=== PATIENT | male | born 1945 | race Caucasian/White ===

== ENCOUNTER → 2024-01-05 10:14 | Outpatient (REF) | payer BC, SELFPAY | LOC: DHCBS MAIN 10:14 | PROVIDERS: ATTENDING PHYSICIAN Internal Medicine Cardiovascular Disease; FAMILY PHYSICIAN Family Medicine | DX: I25.10 Atherosclerotic heart disease of native coronary artery without angina pectoris (principal); R06.02 Shortness of breath | CPT/HCPCS: 93306 ==

== ENCOUNTER → 2024-01-09 07:28 | Outpatient (REF) | payer BC, SELFPAY ==
[2024-01-09] MEDS: LEXISCAN 0.400000000000000022 MG IV (09:38)
[2024-01-09] MEDS: AMINOPHYLLINE 75 MG IV (09:44)
== END ==
LOC: RCS 07:28
PROVIDERS: ATTENDING PHYSICIAN Internal Medicine Cardiovascular Disease; FAMILY PHYSICIAN Family Medicine
DX: I25.10 Atherosclerotic heart disease of native coronary artery without angina pectoris (principal); R06.02 Shortness of breath
CPT/HCPCS: 78452; 93017; A9500; J2785

== ENCOUNTER → 2024-03-11 07:26 | Outpatient (REF) | payer BC, SELFPAY | LOC: RAD 07:26 | PROVIDERS: ATTENDING PHYSICIAN Internal Medicine Cardiovascular Disease; FAMILY PHYSICIAN Family Medicine | DX: I73.9 Peripheral vascular disease, unspecified (principal); I71.43 Infrarenal abdominal aortic aneurysm, without rupture | CPT/HCPCS: 76770; 93922; 93925 ==

== ENCOUNTER → 2024-03-12 09:43 | Outpatient (REF) | payer BC, SELFPAY ==
[2024-03-12 12:12] LABS: ALT (SGPT) 31 U/L (0-50); AST (SGOT) 39 U/L (17-59); Alkaline Phosphatase 97 U/L (38-126); Blood Urea Nitrogen 24 mg/dl (9-20); Calcium 9.1 mg/dl (8.4-10.2); Carbon Dioxide 28 mmol/L (22-30); Chloride 104 mmol/L (98-107); Glucose 106 mg/dl (70-99); Potassium 4.3 mmol/L (3.5-5.1); Sodium 138 mmol/L (135-145); Total Protein 6.4 g/dl (6.3-8.2); eGFR > 60.00
== END ==
LOC: HWLAB 09:43
PROVIDERS: ATTENDING PHYSICIAN Family Medicine
DX: I10 Essential (primary) hypertension (principal)
CPT/HCPCS: 36415; 80053

== ENCOUNTER → 2024-03-26 09:55 | Outpatient (REF) | payer BC, SELFPAY ==
[2024-03-26 12:15] LABS: ALT (SGPT) 26 U/L (0-50); AST (SGOT) 32 U/L (17-59); Albumin 4.2 g/dl (3.5-5.0); Alkaline Phosphatase 88 U/L (38-126); Blood Urea Nitrogen 31 mg/dl (9-20); Calcium 9.6 mg/dl (8.4-10.2); Carbon Dioxide 33 mmol/L (22-30); Chloride 104 mmol/L (98-107); Glucose 105 mg/dl (70-99); HDL Cholesterol 59 mg/dl; LDL Cholesterol, Calculated 51 mg/dl; Potassium 4.5 mmol/L (3.5-5.1); Sodium 139 mmol/L (135-145); Total Bilirubin 1.1 mg/dl (0.2-1.3); Total Cholesterol 129 mg/dl (50-199); Total Protein 6.6 g/dl (6.3-8.2); Triglyceride 99 mg/dl (10-149); Very Low Density Lipoprotein 19 mg/dl (0-30); eGFR > 60.00
[2024-03-27 18:02] LABS: PSA, Ultrasensitive 3.52 ng/mL (0.00-4.00)
== END ==
LOC: HWLAB 09:55
PROVIDERS: ATTENDING PHYSICIAN Urology; FAMILY PHYSICIAN Family Medicine; REFERRING PHYSICIAN Internal Medicine Cardiovascular Disease
DX: C61 Malignant neoplasm of prostate (principal); E78.5 Hyperlipidemia, unspecified; R91.1 Solitary pulmonary nodule
CPT/HCPCS: 36415; 71250; 80053; 80061; 84153

== ENCOUNTER → 2024-06-25 09:56 | Outpatient (REF) | payer BC, SELFPAY ==
[2024-06-25 13:05] LABS: PSA, Total - Diagnostic < 0.06 ng/ml (0.0-4.0)
[2024-06-25 13:08] LABS: Testosterone, Total 17.9 ng/dl (72-623)
== END ==
LOC: HWLAB 09:56
PROVIDERS: ATTENDING PHYSICIAN Urology; FAMILY PHYSICIAN Family Medicine
DX: C61 Malignant neoplasm of prostate (principal)
CPT/HCPCS: 36415; 84153; 84403

== ENCOUNTER → 2024-10-27 09:16 | Outpatient (REF) | payer BC, SELFPAY ==
[2024-10-27 12:00] LABS: ALT (SGPT) 26 U/L (0-50); AST (SGOT) 37 U/L (17-59); Albumin 3.8 g/dl (3.5-5.0); Alkaline Phosphatase 79 U/L (38-126); Blood Urea Nitrogen 22 mg/dl (9-20); Calcium 9.1 mg/dl (8.4-10.2); Carbon Dioxide 31 mmol/L (22-30); Chloride 105 mmol/L (98-107); Glucose 103 mg/dl (70-99); HDL Cholesterol 62 mg/dl; LDL Cholesterol, Calculated 57 mg/dl; Potassium 4.4 mmol/L (3.5-5.1); Sodium 143 mmol/L (135-145); Total Bilirubin 0.5 mg/dl (0.2-1.3); Total Cholesterol 130 mg/dl (50-199); Total Protein 6.1 g/dl (6.3-8.2); Triglyceride 57 mg/dl (10-149); Very Low Density Lipoprotein 11 mg/dl (0-30); eGFR > 60.00
[2024-10-27 12:26] LABS: Testosterone, Total 7.8 ng/dl (72-623)
[2024-10-29 11:52] LABS: PSA, Ultrasensitive <0.01 ng/mL (0.00-4.00)
== END ==
LOC: HWLAB 09:16
PROVIDERS: ATTENDING PHYSICIAN Urology; FAMILY PHYSICIAN Family Medicine; REFERRING PHYSICIAN Internal Medicine Cardiovascular Disease
DX: C61 Malignant neoplasm of prostate (principal); I25.10 Atherosclerotic heart disease of native coronary artery without angina pectoris; E78.5 Hyperlipidemia, unspecified
CPT/HCPCS: 36415; 80053; 80061; 84153; 84403

== ENCOUNTER → 2025-05-02 15:07 | Outpatient (REF) | payer BC, SELFPAY | LOC: RAD 15:07 | PROVIDERS: ATTENDING PHYSICIAN Internal Medicine Cardiovascular Disease; FAMILY PHYSICIAN Family Medicine; REFERRING PHYSICIAN Urology | DX: I35.0 Nonrheumatic aortic (valve) stenosis (principal); I71.43 Infrarenal abdominal aortic aneurysm, without rupture | CPT/HCPCS: 36415; 76770; 84153; 84403; 93306 ==

== ENCOUNTER → 2025-05-10 12:32 | Outpatient (REF) | payer BC, SELFPAY | LOC: HWRAD 12:32 | PROVIDERS: ATTENDING PHYSICIAN Family Medicine | DX: R91.1 Solitary pulmonary nodule (principal) | CPT/HCPCS: 71250 ==

== ENCOUNTER 2025-05-30 14:02 | Inpatient (IN) | payer MEDICARE, BC, SELFPAY ==
[2025-05-29 23:19] VITALS: BP 93/50
[2025-05-30] VITALS (18 sets, daily range): BP systolic 80–133; BP diastolic 49–78; PULSE 53–63; BMI 29.8
[2025-05-30 01:08] LABS: ALT (SGPT) 17 U/L (0-50); AST (SGOT) 21 U/L (17-59); Albumin 3.9 g/dl (3.5-5.0); Alkaline Phosphatase 101 U/L (38-126); Blood Urea Nitrogen 28 mg/dl (9-20); Calcium 9.0 mg/dl (8.4-10.2); Carbon Dioxide 22 mmol/L (22-30); Chloride 111 mmol/L (98-107); Glucose 119 mg/dl (70-99); Potassium 3.9 mmol/L (3.5-5.1); Sodium 141 mmol/L (135-145); Total Protein 6.2 g/dl (6.3-8.2); eGFR > 60.00
[2025-05-30 01:29] LABS: Hematocrit 37.8 % (39.0-52.0); Hemoglobin 12.5 g/dL (13.0-18.0); Mean Corp Hgb Conc. 33.1 g/dL (33.0-37.0); Mean Corpuscular Volume 92.4 fL (80.0-94.0); Nucleated Red Blood Cells % 0 % (-); Platelet Count 123 10^3/uL (130-400); Red Cell Dist. Width 13.7 % (11.5-14.5)
[2025-05-30] MEDS: NSS 500 IV (03:46)
[2025-05-30 04:07] LABS: Urine Character Clear (Clear)
[2025-05-30 04:17] LABS: Urine Red Blood Cell 0-2 /HPF (0-2); Urine Squamous Cell None seen /LPF (Few); Urine White Cell 0-2 /HPF (0-5)
[2025-05-30 04:29] LABS: COVID-19 Antigen Negative (Negative)
[2025-05-30 04:51] LABS: Troponin I 0.039 ng/ml
--- NOTE | 2025-05-30 05:03 | ED.GENMED ---
History of Present Illness
General
Chief Complaint: Weakness
Source: patient and family
Exam Limitations: none
Time Seen by Provider: 05/30/25 03:23
Nursing documentation reviewed up to this point in time: agreed with
History of Present Illness
History of Present Illness:
79-year-old male with a past medical history of hypertension, CAD who presents to the emergency department with his daughter for evaluation after an episode of what sounds like syncope/presyncope--he described 'weakness.' Patient says that he was
sitting in his recliner earlier today and when he tried to stand up he was 'too weak' and collapsed back in the chair. His daughter says she was with him and noted that he was staring blankly and not responding and had an episode of stool
incontinence. She says that he was clammy/diaphoretic. No injuries�fell back into chair. He says he cannot recall any chest pain or shortness of breath. Daughter does note that it is rather hot in the house and they use fans without any air
conditioning. Patient does speculate that he may not have been drinking enough water today. Currently here in the emergency room patient says he feels some generalized weakness but no other specific complaints. Denies abdominal pain, nausea,
vomiting, headache or any other acute complaints here in the ER.
Past History
Past History
ED Past Medical History: HTN
ED Past Surgical History: Urological
Social History
Drug: None
Living: with family
Employment: Employed
Review of Systems
Review of Systems
All Other Systems: ROS reviewed and negative except as documented in HPI and ROS
Constitutional: Reports fatigue; Denies fever or chills
Respiratory: Denies trouble breathing
Cardiac: Reports diaphoresis and syncope; Denies chest pain or palpitations
ABD/GI: Reports diarrhea (X 1 episode); Denies abdominal pain, nausea or vomiting
: Denies flank pain
Musculoskeletal: Denies neck pain or back pain
Neurological: Denies dizzy or headache
Phy Exam
Physical Exam
Physical Exam:
General: Awake, alert, oriented x3; no acute distress
Head: Normocephalic, atraumatic
Eyes: Conjunctiva normal
Throat: Airway intact, handling secretions
Neck: Trachea midline, supple without meningismus
Lungs: Clear to auscultation bilaterally, no wheezing, rales, rhonchi
Heart: Regular rate and rhythm, no murmurs, gallops, or rubs appreciated
Abd: Soft, non distended, nontender, no masses
Extremities: Atraumatic, warm and well-perfused
Scores
Heart Failure Risk
Heart Failure Risk Score: Not Applicable
Heart Score for Chest Pain Patients
STEMI patient?: Not applicable
Withdrawal Assessment of Alcohol
Withdrawal Assessment Completed?: Not applicable
Course
Orders/Labs/Results
Orders:
Orders
05/30/25 00:29
EKG [Electrocardiogram (*1)] Urgent
Reason for Study: Fatigue / Weakness
EKG- Treatment ONCE
05/30/25 00:47
CMP [Comprehensive Metabolic Panel] Urgent
Complete Blood Count/With Diff Urgent
05/30/25 03:35
0.9% Sodium Chloride 500 ml [Nss] 500 ml IV BOLUS
05/30/25 03:39
COVID-19 Antigen Urgent
Source: Nasal Swab
Troponin I Urgent
Urinalysis Reflex To Culture Urgent
Date Specimen was Collected: 05/30/25
Time Specimen was Collected: 03:35
Urine Microscopic Reflex Cult Urgent
Influenza A+B Rapid Molecular Urgent
IAIN Source: Nasal Swab
Specimen Description:
05/30/25 06:00
Troponin I Urgent
Abnormal Lab Results
05/30/25 05/30/25
00:47 03:39
WBC 12.8 H 10^3/uL
(4.8-10.8)
RBC 4.09 L 10^6/uL
(4.70-6.10)
Hgb 12.5 L g/dL
(13.0-18.0)
Hct 37.8 L %
(39.0-52.0)
Plt Count 123 L 10^3/uL
(130-400)
MPV 11.0 H fL
(7.4-10.4)
Absolute Neuts (auto) 10.9 H 10^3/uL
(1.4-6.5)
Absolute Lymphs (auto) 0.9 L 10^3/uL
(1.2-3.4)
Absolute Monos (auto) 0.9 H 10^3/uL
(0.1-0.6)
Neutrophils % 85.4 H %
(42.2-75.2)
Lymphocytes % 7.0 L %
(20.5-51.1)
Chloride 111 H mmol/L
(98-107)
BUN 28 H mg/dl
(9-20)
Glucose 119 H mg/dl
(70-99)
Troponin I 0.039 H* ng/ml
Total Protein 6.2 L g/dl
(6.3-8.2)
Urine Albumin (Reflex) 1+ A
(Neg - Trace)
05/30/25 00:47
05/30/25 00:47
Vital Signs
Initial and Last Documented VS:
Initial Vital Signs
Pulse BP Pulse Ox
97 93/50 91
05/29/25 23:19 05/29/25 23:19 05/29/25 23:19
Last Documented Vital Signs
Temp Pulse Resp BP Pulse Ox
36.9 C 79 15 97/60 91
05/30/25 04:57 05/30/25 04:45 05/30/25 04:30 05/30/25 04:12 05/30/25 04:45
MDM/Problems Addressed
Differential Diagnosis Includes:
Dysrhythmia, SC, anemia, electrolyte derangement, dehydration, vasovagal episode
MDM/Problems Addressed:
79-year-old male presents after an episode of 'weakness' during which he was clammy, not responsive per daughter. Feels generally weak year but no other acute complaints. Soft blood pressure but otherwise normal vitals�blood pressure improved with
fluids. Physical exam as above. He had lab work sent off including a CBC which shows stable anemia and thrombocytopenia, monitor leukocytosis of unclear acute clinical significance. CMP shows normal renal function, no significant electrolyte
derangements. His EKG shows a sinus rhythm with some new lateral T wave abnormalities compared to prior. His initial troponin is elevated to 0.039. Certainly this could have been a vasovagal episode but given his history with abnormal EKG and
elevated troponin we will admit for trending of troponins and monitoring on telemetry. Case discussed with hospitalist.
Chronic conditions affecting care:
CAD
*Pulse Oximetry
SaO2: 91
Oxygen Mode of Delivery: Room air
Patient hypoxic: no (91%)
*EKG
Interpreted by ED Provider?: Yes
Heart Rate: 98
Rate: normal
Rhythm: sinus
[place]: left axis deviation
Interval: normal interval
QRS Pattern: wide non-specific and left vent hypertrophy
Ischemia: T-wave inversion
*Critical Care Note
Total Time (30-74mins, 75-104mins- exclusive of procedures): Not Applicable
Data Reviewed
Review of Other/Old Records Reveals: Labs and Records
Source: patient and family
Further Testing Considered But Not Given:
Considered CT chest to evaluate for PE given syncope and elevated troponin but patient is on Xarelto and has no hypoxia, tachypnea, tachycardia, no signs of DVT�very low clinical suspicion
Patient Management
Discussion with other providers: Hospitalist (Discussed with hospitalist)
Escalation/DeEscalation of care consider admission/obs:
Admission indicated
ED Attending Note
-
Portions of this chart may have been created with voice recognition software.� Occasional wrong word or��sound alike� substitutions may have occurred due to the inherent limitations of voice recognition software.
Discharge Plan
Departure
Patient Disposition: Admit
Date of Disposition: 05/30/25
Time of Disposition: 05:14
Admit to doctor: Moreno
Presentation/result/management discussed w/ accepting MD/DO: Hospitalist
Discharge Problem:
Weakness, Syncope
Prescriptions:
No Action
atorvastatin 80 MG tablet
80 mg PO QPM
carvedilol 12.5 MG tablet
12.5 mg PO BID
amlodipine 2.5 mg Tablet
2.5 mg PO DAILY
aspirin 81 mg Tablet
81 mg PO DAILY
ezetimibe 10 mg Tablet
10 mg PO DAILY
Xarelto 20 mg Tablet
20 mg PO DAILY
Referrals:
Giacomo Gan MD [Family Provider, Family Practice]
Interventions
Interventions:
*Risk Screen - Suicide Last Done: 05/29/25 23:07
*General Assessment Last Done: 05/30/25 00:11
*Neglect/Abuse Screening Last Done: 05/29/25 23:07
*ED- Fall Risk Assessment Last Done: 05/30/25 00:11
*ED COVID-19 Vaccine History Last Done: 05/30/25 00:11
ED- Cardiac Assessment Last Done: 05/30/25 00:11
ED- Neurological Assessment Last Done: 05/30/25 00:11
ED- Pulmonary Assessment Last Done: 05/30/25 00:11
Discharge Date and Time
Print Language: NORWEGIAN
--- NOTE | 2025-05-30 05:55 | HPS.HSE ---
Family Physician
-
Family Physician: Giacomo Gan
Chief Complaint
-
Weakness / Near-Syncope
History of Present Illness
Patient is an 79y M with PMH significant for ASCVD, hypertension and A-Fib who presents to ED complaining of weakness / near-syncope at home. History obtained from patient and his family at the bedside. Patient was feeling fairly well until
this evening. He had to go to the bathroom and his daughter assisted him. Despite her assistance, he was very weak and unsteady on his feet. He had several near-falls but did not collapse. He denies any loss of consciousness. Daughter notes
that he was diaphoretic and clammy. He seemed somewhat confused. Patient was incontinent of loose stool during this episode.
Patient denies any prior history of similar episodes.
In the ED, he is resting comfortably and denies any complaints at present.
Medical History
Past Medical History
Past Medical History: Reports Other
Additional Past Medical History:
ASCVD
Hypertension
Atrial Fibrillation
1st Degree AV Block
AAA
Prostate Cancer
Past Surgical History: Reports Other
Additional Past Surgical History:
PTCA with Stent
Prostatectomy
Cataracts
Hernia Repair
Left TKA
Left Shoulder Surgery
Social History
Tobacco: Non-smoker
Alcohol: None
Drug: None
Family History
Family History: Not pertinent
Allergies / Home Medications
Allergies reflects when Allergies were last updated in [employer].
Home Medications with original date entered in [employer]
Allergy/Medication List:
Allergies
Allergy/AdvReac Type Severity Reaction Status Date / Time
No Known Allergies Allergy Verified 05/29/25 23:10
Home Medications
atorvastatin 80 mg tablet 80 mg PO QPM 08/07/16
carvedilol 12.5 mg tablet 12.5 mg PO BID 08/07/16
amlodipine 2.5 mg tablet 2.5 mg PO DAILY 05/30/25
aspirin 81 mg tablet 81 mg PO DAILY 05/30/25
ezetimibe 10 mg tablet 10 mg PO DAILY 05/30/25
rivaroxaban 20 mg tablet (Xarelto) 20 mg PO DAILY 05/30/25
Review of Systems
-
History Source: Patient and Family
A 12 point ROS was completed and negative except as noted: Yes
Constitutional: Reports Fatigue; Denies Fever or Chills
EENT: Denies Sore Throat
Respiratory: Denies Cough or Trouble Breathing
Cardiac: Reports Diaphoresis and Syncope ('near' syncope); Denies Chest Pain or Palpitations
Abdomen/GI: Reports Nausea, Diarrhea and Other (Stool incontinence); Denies Abdominal Pain, Vomiting, Bloody Stools or Black Stools
: Denies Dysuria or Frequency
Musculoskeletal: Denies Joint Pain or Edema
Neurological: Reports Dizzy and Weakness; Denies Headache
Psych: Denies Depression or Anxiety
Physical Exam
Vital Signs
Vital Signs
Temp Pulse Resp BP Pulse Ox
98.5 F 79 15 97/60 91
05/30/25 04:57 05/30/25 04:45 05/30/25 04:30 05/30/25 04:12 05/30/25 05:07
Physical Exam
General: Other (79y M in no distress.)
HEENT: Moist mucous membranes and PERRLA
Respiratory: Clear; No Wheezes, Rales or Rhonchi
Cardiac: S1/S2, Regular Rhythm and Murmur (II/ ARIAS)
GI: Soft, Non Tender, Non Distended and Normal Bowel Sounds
Musculoskeletal: No Clubbing, No Cyanosis and Other (1+ pitting edema b//l ankles.)
Neuro: AO x 3
Laboratory Results
-
05/30/25 00:47
05/30/25 00:47
Laboratory Results
Total Bilirubin 1.0 mg/dl (0.2-1.3) 05/30/25 00:47
AST 21 U/L (17-59) 05/30/25 00:47
ALT 17 U/L (0-50) 05/30/25 00:47
Alkaline Phosphatase 101 U/L (38-126) 05/30/25 00:47
Troponin I 0.039 ng/ml H* 05/30/25 03:39
Impression/Plan
-
A/P: Patient is an 79y M with PMH significant for ASCVD, hypertension and A-Fib who presents to ED complaining of weakness, near-syncopal episode at home this evening.
Vasovagal Episode
1st Degree AV Block
Junctional Rhythm
Hypotension
- Observe overnight for further evaluation and treatment.
- Suspect vasovagal event - likely due to GI distress / need to move bowels.
- Tele shows significant 1st degree block with periods of junctional rhythm.
- Hold beta-blockade for now.
- Hold amlodipine given relative hypotension.
- Monitor for any significant blocks, pauses, etc. (None seen so far).
- IVF support.
- Cardiology evaluation in the AM.
- Echo was done earlier this month (EF = 68%, moderate , no change from prior study).
- Check stool studies if further diarrhea to rule out infectious enteritis.
Abnormal Troponin
ASCVD
- No complaints of chest pain, dyspnea, etc.
- EKG with LVH / repolarization changes but no evident acute ischemia.
- Initial troponin mildly abnormal at 0.039 - trend to peak.
- Continue ASA, statin, etc.
- Follow for any new symptoms.
- Cardiology evaluation as noted above.
Benign Hypertension
- Currently relatively low BP
- Hold amlodipine and carvedilol for now.
- IVF support and follow for improvement.
- Check orthostatic signs.
Paroxysmal Atrial Fibrillation (?)
- Daughter reports history of A-Fib and patient is on Xarelto (? for CAD).
- No prior EKG with A-Fib and diagnosis not listed in his chart that I could locate.
- Monitor on telemetry.
- Clarify with Cardiology / outpatient records.
- Holding Xarelto acutely in the event that patient requires any interventions / procedures.
DVT Prophylaxis: SCDs
Code Status: Full
[2025-05-30 06:55] LABS: Troponin I 0.077 ng/ml
--- NOTE | 2025-05-30 07:28 | W.PN.HOSP.TC ---
Today's Communication/Plan
-
Pacemaker for Friday
Feeling better after IV fluids
Assessment / Plan
Assessment / Plan
Physical Exam
General: Other (79y M in no distress.)
HEENT: Moist mucous membranes and PERRLA
Respiratory: Clear; No Wheezes, Rales or Rhonchi
Cardiac: S1/S2, Regular Rhythm and Murmur (II/ ARIAS)
GI: Soft, Non Tender, Non Distended and Normal Bowel Sounds
Musculoskeletal: No Clubbing, No Cyanosis and Other (1+ pitting edema b//l ankles.)
Neuro: AO x 3
Assessment/Plan
79y M with PMH significant for ASCVD, hypertension and A-Fib who presented to ED complaining of weakness / near-syncope at home. Admission history was obtained from patient and his family at the bedside. Patient was feeling fairly well until the
evening of the day of presentation. Patient had to go to the bathroom and his daughter assisted him. Despite her assistance, he was very weak and unsteady on his feet -- patient stated he was fully conscious the entire time. He had several
near-falls but did not collapse. He denied any loss of consciousness. Daughter notes that he was diaphoretic and clammy. He seemed somewhat confused. Patient was incontinent of loose stool during this episode (daughter stated that he need to
have a bowel movement prior to the episode of near falling)
Patient denies any prior history of similar episodes.
In the ED, he was resting comfortably and denies any complaints at present.
Admitted with weakness, diaphoresis and near syncope 05/29/25
Vasovagal Episode
1st Degree AV Block
Junctional Rhythm
Hypotension
- Suspect vasovagal event - likely due to GI distress / need to move bowels.
- Patient also does not always have air conditioning at home (per patient's daughter), and recently it has been very hot -- dehydration is another possibility
- Tele showed significant 1st degree block with periods of junctional rhythm.
- Hold beta-blockade for now.
- Hold amlodipine given relative hypotension.
- Monitor for any significant blocks, pauses, etc.
- IVF support has been given
- Cardiology evaluation: pacemaker planned for 06/01/25
- Echo was done earlier this month (EF = 68%, moderate , no change from prior study).
- Check stool studies if further diarrhea to rule out infectious enteritis.
Abnormal Troponin
ASCVD
- No complaints of chest pain, dyspnea, etc.
- EKG with LVH / repolarization changes but no evident acute ischemia.
- Initial troponin mildly abnormal at 0.039 - trend to peak.
- Continue ASA, statin, etc.
- Follow for any new symptoms.
- Cardiology evaluation as noted above.
Benign Hypertension
- Currently relatively low BP
- Hold amlodipine and carvedilol for now.
- IVF support and follow for improvement.
- Check orthostatic signs.
Paroxysmal Atrial Fibrillation (?)
- Daughter reports history of A-Fib and patient is on Xarelto (? for CAD).
- No prior EKG with A-Fib and diagnosis not listed in his chart that I could locate.
- Monitor on telemetry.
- Clarify with Cardiology
- Holding Xarelto acutely since patient will need pacemaker above
DVT Prophylaxis: SCDs. Lovenox.
Code Status: Full Code
On 05/30/25, I spoke with patient's daughter in person inside patient's room, and I answered all her questions and concerns to satisfaction.
Anticipated Discharge: > 48 hours
Subjective/Interval History
-
Date of Service: May 30, 2025
Patient was seen and examined. He reported his weakness is better, denied any significant complaints.
Objective Data
-
Labs:
Laboratory Results
05/30/25
00:47
WBC 12.8 H
Hgb 12.5 L
Hct 37.8 L
Plt Count 123 L
Sodium 141
Potassium 3.9
Chloride 111 H
Carbon Dioxide 22
BUN 28 H
Creatinine 0.9
Glucose 119 H
Calcium 9.0
Total Bilirubin 1.0
AST 21
ALT 17
Alkaline Phosphatase 101
Vital Signs:
Vital Signs
Temp Pulse Resp BP Pulse Ox
98.5 F 73 16 105/66 94
05/30/25 04:57 05/30/25 07:00 05/30/25 07:05 05/30/25 07:00 05/30/25 07:00
--- NOTE | 2025-05-30 07:39 | PHANOTE ---
med rec note- attempt to do med rec with patient but continues to sleep and stated that he has no idea what he on
[2025-05-30] MEDS: LOW STRENGTH ASPIRIN 81 MG PO (08:33)
[2025-05-30] MEDS: LR 1000 IV ×2 (08:34→17:37)
[2025-05-30 08:49] LABS: Troponin I 0.098 ng/ml
[2025-05-30 10:37] LABS: Glycohemoglobin (HgbA1c) 5.4 % (4.0-5.6)
--- NOTE | 2025-05-30 11:15 | CON.CAR ---
Addendum entered and electronically signed by Malachi Yeh DO 05/30/25 21:25:
I saw and examined the patient.
The Chief Operating Engineer's note was reviewed and I agree with the note.
Comment:
Plan:
Cont supportive care.
With long first degree LBBB and unresponsive episode and after discussion with primary pediatric urologist, pt was recommended EP evaluation and pt recommended consideration for PPM prior to d/c.
Hold Coreg
Family updated at bedside.
Recent echo reviewed, no need to repeat at this time.
Patient with known paroxysmal A-fib and his outpatient dose of Xarelto 20 mg daily is on hold and will restart following PPM.
Original Note:
Consultation
Consultation Request
Date/Time Consultation Requested: 05/30/25 at 0748
Date/Time Consultation Performed: 05/30/25 at 1048
Requesting Provider: Dr. Coelho
Performing Provider: Dr. Yeh
Reason for Consultation: Near syncope, elevated Troponin
Medical History
-
History of Present Illness:
Patient came to [facility] ER early this morning with near syncope and was admitted with bradycardia and cardiology has been consulted. Patient lives with his daughter and she was helping him to the bathroom when he became too weak to stand on his own
and fell back into a chair, he was briefly unresponsive but eyes were always open. ECG in the ER showed known chronic LBBB and first-degree AV block. Telemetry in the ER apparently showed periods of junctional rhythm. Patient was admitted and his
outpatient dose of Coreg 12.5 mg BID was placed on hold. Patient also noted to be hypotensive at 97/60 so his outpatient dose of amlodipine 2.5 mg daily was also placed on hold. Patient has received 1.5 L IVF since admission and BP improved to
122/60. No recurrence of near syncope, but he has not had a chance to work with PT/OT yet. Of note patient and daughters home does not have air conditioning and instead they rely on fans.
PMH:
Paroxysmal Afib
Chronic Xarelto OAC
HTN
CAD s/p overlapping 3 mm and 3 mm Cypher to LAD 2004
Moderate
Past Medical History
Past Medical History: Other (in HPI)
Past Surgical History: Cardiac (s/p 3 mm and 3 mm overlpaaing Cypher stents to LAD 2004) and Orthopedic
Social History
Tobacco: Non-Smoker
Alcohol: None
Drug: None
Personal:
Family History
Family History: CAD
Allergies / Home Medications
Allergy/AdvReac Type Severity Reaction Status Date / Time
No Known Allergies Allergy Verified 05/29/25 23:10
�Medication �Instructions �Recorded �Confirmed �Type
atorvastatin 80 mg tablet 80 mg PO QPM 08/07/16 05/30/25 History
carvedilol 12.5 mg tablet 12.5 mg PO BID 08/07/16 05/30/25 History
amlodipine 2.5 mg tablet 2.5 mg PO DAILY 05/30/25 05/30/25 History
aspirin 81 mg tablet 81 mg PO DAILY 05/30/25 05/30/25 History
ezetimibe 10 mg tablet 10 mg PO DAILY 05/30/25 05/30/25 History
rivaroxaban 20 mg tablet (Xarelto) 20 mg PO DAILY 05/30/25 05/30/25 History
Review of Systems
-
History Source: Patient and Family (daughter bedside)
All other systems: Negative unless noted
Physical Exam
Vital Signs
Temp Pulse Resp BP Pulse Ox
98.5 F 67 16 122/60 96
05/30/25 08:00 05/30/25 08:00 05/30/25 08:00 05/30/25 08:00 05/30/25 08:00
GEN: NAD. AAOx3
HEENT: EOMI, MMM
LUNGS: RA. Clear anterolaterally without wheeze
CV: SR on tele. Reg, S1/S2, 2/6 syst LSB
ABD: soft, BS+, NT, ND
EXT: No clubbing, cyanosis, lesions or edema B/L
NEURO: Gross non-focal
SKIN: No rash
Lab Results
05/30/25 00:47
05/30/25 00:47
Troponin I 0.098 ng/ml H* D 05/30/25 08:03
Impression / Plan
-
PCP: Dr. Giacomo Gan
Card: Dr. Brandy Pickard
Impression:
Admitted with weakness and near syncope 05/29/25
Near syncope
Hypotension
Intermittent junctional rhythm
First degree AV block
Elevated Troponin
Paroxysmal Afib
Chronic Xarelto OAC
HTN
CAD s/p overlapping 3 mm and 3 mm Cypher to LAD 2004
Moderate
Echo 05/02/2025: EF 60%, no WMA, mild MR, moderate peak/mean 45/23 mmHg and JAKE 1.2 cm sq, trace TR
Plan:
-Patient came to [facility] ER early this morning with near syncope and was admitted with bradycardia and cardiology has been consulted. Patient lives with his daughter and she was helping him to the bathroom when he became too weak to stand on his own
and fell back into a chair, he was briefly unresponsive but eyes were always open. ECG in the ER showed known chronic LBBB and first-degree AV block. Telemetry in the ER apparently showed periods of junctional rhythm. Patient was admitted and his
outpatient dose of Coreg 12.5 mg BID was placed on hold. Patient also noted to be hypotensive at 97/60 so his outpatient dose of amlodipine 2.5 mg daily was also placed on hold. Patient has received 1.5 L IVF since admission and BP improved to
122/60. No recurrence of near syncope, but he has not had a chance to work with PT/OT yet. Of note patient and daughters home does not have air conditioning and instead they rely on fans.
-ECG reviewed by me is SR with LBBB and long first-degree AVB. Telemetry reviewed by me without significant pauses or higher grade heart block
-Most recent echo from 05-25 noted above, no need to repeat
-Will review case with EP to determine if PPM is appropriate given his underlying LBBB and that his PA interval keeps getting longer and longer.--Case reviewed with EP and PPM prior to d/c recommended. Reviewed recommendations with patient and
daughter in the room. We talked about risks bs benefits of PPM and they recalled having talked about this at last office visit as well. We talked about limb restrictions and activity limitations following PPM. Patient and daughter asked questions
which I answered to the best of my ability and they were satisfied and agreeable to PPM on Friday.
-Patient with known paroxysmal A-fib and his outpatient dose of Xarelto 20 mg daily is on hold and will restart following PPM.
--- NOTE | 2025-05-30 11:52 | CM ---
Addendum entered by Rosy Kaufman RN 05/30/25 11:59:
Copy of Medicare Part A Card faxed to admissions.
Addendum entered by Rosy Kaufman RN 05/30/25 11:55:
The patient is admitted under observational status. The GUEVARA letter was provided and explained. The patient had no questions with regards to the letter.
Original Note:
Reviewed the chart notes and spoke with the patient and his daughter at the bedside. The patient resides with his daughter in a two story home with three steps to enter. The patient has a rolling walker, shower chair and bsc in the home. The
patient has had [facility] in the past and been to [facility]. The patient confirmed his pharmacy of choice is [facility]. CM continues to be available to patient/family and is monitoring medical plan for needs at
discharge.
Plan: Discharge plans will depend on the patient's progress.
[2025-05-30 14:58] LABS: Troponin I 0.099 ng/ml
[2025-05-30 15:01] LABS: Albumin 3.7 g/dl (3.5-5.0); Carbon Dioxide 25 mmol/L (22-30); Chloride 112 mmol/L (98-107); Magnesium 2.1 mg/dl (1.6-2.3); Potassium 4.2 mmol/L (3.5-5.1); Sodium 142 mmol/L (135-145)
[2025-05-30 15:24] LABS: ALT (SGPT) 16 U/L (0-50); AST (SGOT) 21 U/L (17-59); Alkaline Phosphatase 81 U/L (38-126); Blood Urea Nitrogen 27 mg/dl (9-20); Calcium 9.3 mg/dl (8.4-10.2); Estimated Creatinine Clearance 68 ml/min; Glucose 120 mg/dl (70-99); Total Protein 6.0 g/dl (6.3-8.2); eGFR > 60.00
[2025-05-30] MEDS: LIPITOR 80 MG PO (17:30)
[2025-05-30] MEDS: LOVENOX 40 MG SC (18:16)
[2025-05-30 20:43] LABS: Troponin I 0.099 ng/ml
[2025-05-31] VITALS (7 sets, daily range): BP systolic 117–150; BP diastolic 57–78; PULSE 55–70; O2SAT 94
[2025-05-31] MEDS: LR 1000 IV ×2 (03:22→13:01)
[2025-05-31] MEDS: LOW STRENGTH ASPIRIN 81 MG PO (07:34)
[2025-05-31 07:39] LABS: Hematocrit 32.3 % (39.0-52.0); Hemoglobin 10.5 g/dL (13.0-18.0); Mean Corp Hgb Conc. 32.5 g/dL (33.0-37.0); Mean Corpuscular Volume 94.2 fL (80.0-94.0); Platelet Count 104 10^3/uL (130-400); Red Cell Dist. Width 14.3 % (11.5-14.5)
[2025-05-31 08:35] LABS: Blood Urea Nitrogen 27 mg/dl (9-20); Calcium 8.3 mg/dl (8.4-10.2); Carbon Dioxide 24 mmol/L (22-30); Chloride 112 mmol/L (98-107); Estimated Creatinine Clearance 61 ml/min; Glucose 87 mg/dl (70-99); HDL Cholesterol 47 mg/dl; LDL Cholesterol, Calculated 50 mg/dl; Magnesium 2.1 mg/dl (1.6-2.3); Potassium 4.1 mmol/L (3.5-5.1); Sodium 141 mmol/L (135-145); Very Low Density Lipoprotein 12 mg/dl (0-30); eGFR > 60.00
--- NOTE | 2025-05-31 10:16 | W.PN.CARDCBS ---
Today's Communication / Plan
-
PPM tomorrow
Impression / Plan
-
PCP: Dr. Giacomo Gan
Card: Dr. Brandy Pickard
Impression:
Admitted with weakness and near syncope 05/29/25
Near syncope
Hypotension
Intermittent junctional rhythm
First degree AV block
Elevated Troponin
Paroxysmal Afib
Chronic Xarelto OAC
HTN
CAD s/p overlapping 3 mm and 3 mm Cypher to LAD 2004
Moderate
Echo 05/02/2025: EF 60%, no WMA, mild MR, moderate peak/mean 45/23 mmHg and JAKE 1.2 cm sq, trace TR
Plan:
Cont supportive care.
Some HR in 30s overnight
With long first degree LBBB and unresponsive episode and after discussion with primary automatic print developer, pt was recommended EP evaluation and pt recommended consideration for PPM prior to d/c.
PPM tentative for June 01
Cont to hold Coreg
Family updated last 24 hrs
Recent echo has been reviewed, no need to repeat at this time.
Patient with known paroxysmal A-fib and his outpatient dose of Xarelto 20 mg daily is on hold and will restart following PPM.
HPI: Patient came to [facility] ER early this morning with near syncope and was admitted with bradycardia and cardiology has been consulted. Patient lives with his daughter and she was helping him to the bathroom when he became too weak to stand on his
own and fell back into a chair, he was briefly unresponsive but eyes were always open. ECG in the ER showed known chronic LBBB and first-degree AV block. Telemetry in the ER apparently showed periods of junctional rhythm. Patient was admitted and
his outpatient dose of Coreg 12.5 mg BID was placed on hold. Patient also noted to be hypotensive at 97/60 so his outpatient dose of amlodipine 2.5 mg daily was also placed on hold. Patient has received 1.5 L IVF since admission and BP improved to
122/60. No recurrence of near syncope, but he has not had a chance to work with PT/OT yet. Of note patient and daughters home does not have air conditioning and instead they rely on fans.
Progress Note - Merchandise Buyer
Subjective
Date of Service: May 31, 2025
Pt seen and examined. No complaints. No chest pain or shortness of breath.
Objective
Labs:
05/31/25 06:17
05/31/25 06:17
Labs
Hgb 10.5 g/dL (13.0-18.0) L 05/31/25 06:17
Hct 32.3 % (39.0-52.0) L 05/31/25 06:17
Plt Count 104 10^3/uL (130-400) L 05/31/25 06:17
Sodium 141 mmol/L (135-145) 05/31/25 06:17
Potassium 4.1 mmol/L (3.5-5.1) 05/31/25 06:17
BUN 27 mg/dl (9-20) H 05/31/25 06:17
Creatinine 1.0 mg/dL (0.7-1.3) 05/31/25 06:17
Glucose 87 mg/dl (70-99) 05/31/25 06:17
Troponins
05/30/25 05/30/25 05/30/25
03:39 06:18 08:03
Troponin I 0.039 H* 0.077 H* D 0.098 H* D
05/30/25 05/30/25
14:10 20:06
Troponin I 0.099 H* 0.099 H*
Vital Signs and I&O:
Vital Signs
Temp Pulse Resp BP Pulse Ox
98.2 F 51 16 133/61 96
05/31/25 07:03 05/31/25 07:03 05/31/25 07:03 05/31/25 07:03 05/31/25 08:33
Vital Signs
Temp Pulse Resp BP Pulse Ox
98.2 F 51 16 133/61 96
05/31/25 07:03 05/31/25 07:03 05/31/25 07:03 05/31/25 07:03 05/31/25 08:33
Intake & Output
05/29/25 05/30/25 05/31/25 06/01/25
06:59 06:59 06:59 06:59
Intake Total 1200 / 1200
Output Total 1450 / 1450
Balance -250 / -250
Physical Exam
Physical Exam
General: No acute distress, AAOX3
Neck: Negative JVD
Heart: Regular, Negative S3 positive S1/S2, Negative S4, No murmur
Lungs: CTA b/l, negative wheezes/rales/rhonchi
Abd: Positive BS, NT/ND, neg rebound/rigidity/guarding
Ext: Negative cyanosis/clubbing/edema
Neuro: nonfocal
--- NOTE | 2025-05-31 14:27 | W.PN.HOSP.TC ---
Today's Communication/Plan
-
Pacemaker planned for 06/01/25
NPO after midnight
Continue to monitor on telemetry
Assessment / Plan
Assessment / Plan
Physical Exam
General: Other (79y M in no distress.)
HEENT: Moist mucous membranes and PERRLA
Respiratory: Clear; No Wheezes, Rales or Rhonchi
Cardiac: S1/S2, Regular Rhythm and Murmur (II/ ARIAS)
GI: Soft, Non Tender, Non Distended and Normal Bowel Sounds
Musculoskeletal: No Clubbing, No Cyanosis and Other (1+ pitting edema b//l ankles.)
Neuro: AO x 3
Assessment/Plan
79y M with PMH significant for ASCVD, hypertension and A-Fib who presented to ED complaining of weakness / near-syncope at home. Admission history was obtained from patient and his family at the bedside. Patient was feeling fairly well until the
evening of the day of presentation. Patient had to go to the bathroom and his daughter assisted him. Despite her assistance, he was very weak and unsteady on his feet -- patient stated he was fully conscious the entire time. He had several
near-falls but did not collapse. He denied any loss of consciousness. Daughter notes that he was diaphoretic and clammy. He seemed somewhat confused. Patient was incontinent of loose stool during this episode (daughter stated that he need to
have a bowel movement prior to the episode of near falling)
Patient denies any prior history of similar episodes.
In the ED, he was resting comfortably and denies any complaints at present.
Admitted with weakness, diaphoresis and near syncope 05/29/25
Vasovagal Episode
1st Degree AV Block
Junctional Rhythm
Hypotension
- Suspect vasovagal event - likely due to GI distress / need to move bowels.
- Patient also does not always have air conditioning at home (per patient's daughter), and recently it has been very hot -- dehydration is another possibility
- Tele showed significant 1st degree block with periods of junctional rhythm.
- Hold beta-blockade.
- Hold Amlodipine given relative hypotension.
- Continue to monitor for any significant blocks, pauses, etc.
- IV fluids support has been given
- Cardiology evaluation: pacemaker planned for 06/01/25
- Echo was done earlier this month (EF = 68%, moderate , no change from prior study).
- Follow stool studies
Abnormal Troponin
ASCVD
- No complaints of chest pain, dyspnea, etc.
- EKG with LVH / repolarization changes but no evident acute ischemia.
- Initial troponin mildly abnormal at 0.039 - trend to peak.
- Continue ASA, statin, etc.
- Follow for any new symptoms.
- Cardiology evaluation as noted above.
Benign Hypertension
- Currently relatively low BP
- Hold amlodipine and carvedilol for now.
- IVF support and follow for improvement.
- Check orthostatic signs.
Paroxysmal Atrial Fibrillation (?)
- Daughter reports history of A-Fib and patient is on Xarelto (? for CAD).
- No prior EKG with A-Fib and diagnosis not listed in his chart that I could locate.
- Monitor on telemetry.
- Clarify with Cardiology
- Holding Xarelto acutely since patient will need pacemaker above
DVT Prophylaxis: SCDs. Lovenox.
Code Status: Full Code
On 05/30/25, I spoke with patient's daughter in person inside patient's room, and I answered all her questions and concerns to satisfaction.
On 05/31/25, I spoke with patient's daughter in person inside patient's room, and I answered all her questions and concerns to satisfaction.
Anticipated Discharge: 24 - 48 hours
Subjective/Interval History
-
Date of Service: May 31, 2025
Patient was seen and examined. He reported feeling okay, denied any new symptoms or complaints.
Objective Data
-
Labs:
Laboratory Results
05/31/25
06:17
WBC 5.8
Hgb 10.5 L
Hct 32.3 L
Plt Count 104 L
Sodium 141
Potassium 4.1
Chloride 112 H
Carbon Dioxide 24
BUN 27 H
Creatinine 1.0
Glucose 87
Calcium 8.3 L
Vital Signs:
Vital Signs
Temp Pulse Resp BP Pulse Ox
98 F 55 16 125/65 97
05/31/25 11:00 05/31/25 11:00 05/31/25 11:00 05/31/25 11:00 05/31/25 11:00
I&O
05/30/25 05/31/25 06/01/25
06:59 06:59 06:59
Intake Total 1200 / 1200
Output Total 1450 / 1450
Balance -250 / -250
--- NOTE | 2025-05-31 14:28 | PTCARENOTE ---
Pt bradying down to 39-42 on tele monitor, asymptomatic. Hospitalist and cards made aware, no new orders at this time, pt to get PM placed tomorrow, NPO at midnight.
--- NOTE | 2025-05-31 14:53 | CM ---
Reviewed the chart notes and spoke with the patient at the bedside. IMM reviewed due to LOC change. Patient for PPM tomorrow. CM continues to be available to patient/family and is monitoring medical plan for needs at discharge.
Plan: Discharge plans will depend on the patient's progress.
[2025-05-31] MEDS: LOVENOX 40 MG SC (17:06)
[2025-05-31] MEDS: LIPITOR 80 MG PO (17:06)
[2025-06-01] VITALS (11 sets, daily range): BP systolic 124–177; BP diastolic 64–96; PULSE 58–83; O2SAT 95; BMI 30.1
[2025-06-01 08:02] LABS: Hematocrit 34.7 % (39.0-52.0); Hemoglobin 11.4 g/dL (13.0-18.0); Mean Corp Hgb Conc. 32.9 g/dL (33.0-37.0); Mean Corpuscular Volume 93.5 fL (80.0-94.0); Platelet Count 111 10^3/uL (130-400); Red Cell Dist. Width 13.9 % (11.5-14.5)
[2025-06-01 08:33] LABS: Blood Urea Nitrogen 23 mg/dl (9-20); Calcium 8.7 mg/dl (8.4-10.2); Carbon Dioxide 25 mmol/L (22-30); Chloride 113 mmol/L (98-107); Estimated Creatinine Clearance 68 ml/min; Glucose 96 mg/dl (70-99); Magnesium 2.0 mg/dl (1.6-2.3); Potassium 4.1 mmol/L (3.5-5.1); Sodium 141 mmol/L (135-145); eGFR > 60.00
[2025-06-01] MEDS: LOW STRENGTH ASPIRIN 81 MG PO (10:13)
--- NOTE | 2025-06-01 10:55 | CM ---
Reviewed the chart notes. Patient scheduled for PPM today. CM continues to be available to patient/family and is monitoring medical plan for needs at discharge.
Plan: Discharge plans will depend on the patient's progress.
--- NOTE | 2025-06-01 13:14 | PTCARENOTE ---
pt to [facility] for PPM
--- NOTE | 2025-06-01 13:24 | PN.CDI ---
CDI
- -
CDI:
Physician Documentation Request
Admit Date: 05/30/25 14:02
Dear Doctor Laquita,
Please review the following and provide your response in the progress notes.
Clinical Indicators:
- 05/31 PN 'Abnormal Troponin...No complaints of chest pain, dyspnea, etc...no evident acute ischemia'
- 05/31 Cardiology 'Elevated Troponin'
Laboratory Tests
05/30/25 05/30/25 05/30/25
03:39 08:03 20:06
Troponin I 0.039 H* 0.098 H* D 0.099 H*
Please clarify the following regarding the documented elevated troponins:
Non-ischemic myocardial injury
Clinically insignificant abnormal lab values
Other (please specify)
Use of terms such as suspected, likely, concern for, or probable (associated with a specific diagnosis that is being evaluated, monitored, or treated as if it exists) are acceptable and can be coded in the inpatient setting, when documented at the
time of discharge.
Thank you,
Ruel Antonio RN
CDI Specialist
Please use your independent medical judgment in providing your response.
--- NOTE | 2025-06-01 15:15 | TRANSFER ---
Report received from [facility] and patient transferred to cath recovery bay 10 with daughter. Patient awake, alert and oriented awaiting pacer.
--- NOTE | 2025-06-01 16:22 | ITS.CL.PACE ---
Health Care Sanitary Technician - Pacemaker Implant
Pacemaker Implant
Procedure Report:
PACEMAKER IMPLANT REPORT
Primary Care Provider: Giacomo Gan
Primary network/telecom engineer: Brandy Pickard
Date of Procedure: June 01, 2025
Procedure:
Implantation of dual-chamber permanent pacemaker utilizing the left bundle branch for conduction system pacing
Indication/Diagnosis:
Non-reversible symptomatic bradycardia due to syncope and second atrioventricular block
After informed consent was obtained, 'time out' was called and confirmed, the patient was prepped and draped in a sterile fashion. Lidocaine with epi was used for local anesthesia. Central venous access was obtained via subclavian venipuncture. An
incision was made along the left chest and a pre-pectoral pocket was formed. Using a Seldinger technique and peel-away sheaths, the pacing leads were placed under fluoroscopic guidance.
Fluoroscopy was used to determine likely anatomic site for left bundle branch pacing. The KEW Grouptronic C315 sheath was used to deliver the Medtronic 3830 Selectsecure pacing lead with the helix exposed just exposed from the sheath tip during continuous
monitoring when pacemapping the septum during gentle clockwise rotation to obtain a paced QRS morphology of a W pattern in lead V1. Once the suspected optimal site was identified, lead deployment was performed with several rapid rotations as paced
QRS morphology was intermittently monitored until a paced QRS complex in lead V1 demonstrated development of an R wave [ ] (qR or rSR).
Unipolar pacing impedance dropped by approximately 200 ohms suggesting it had reached the left ventricular subendocardial.
Stable VEgm injury current is present throughout final lead position including at end of case, suggesting there was no perforation through the septum into the LV cavity.
Unipolar pacing impedance is 800 Ohms
Unipolar pacing threshold is stable at 1 V @ 0.4 ms.
Final conduction system paced QRS complex duration is 106 ms
LVAT is 74 ms and peak V5 -> peak V1 timing is 47 ms
There is QRS transition to LVSP / selective LBBP during threshold testing
Right atrial lead was placed at the RAA.
Once testing (see below) showed adequate and stable function, the leads were secured using the suture sleeves. The pocket was liberally irrigated with antibiotic solution. The leads were connected to the generator header and the leads and
generator were placed within the pocket. Fluoroscopy confirmed stable lead position. The pocket was closed in the typical fashion.
IMPLANTS:
Medtronic [id number], SN: [id number], Left Pectoral
RA: Medtronic 5076-45, SN: [id number], RAA
Left Bundle: Medtronic 3830 , SN:[id number], Interventricular septum at LBB
DEVICE TESTING:
Sensing: RA 1.8 mV, RV 16 mV
Capture: RA 0.75 V@0.4ms, RV 0.6 V@0.4ms (bipolar)
Ohms: RA 400, RV 730 (bipolar)
FINAL PROGRAMMING
Herbie Pacing: DDDR 60-130 ppm
COMPLICATIONS:
None
CONCLUSIONS:
Successful implant of dual chamber permanent pacemaker utilizing Left Bundle Branch conduction system capture for ventricular resynchronization pacing.
RECOMMENDATIONS:
Post-op care (tele, CXR, IV abx)
Okay to resume Xarelto on Friday for
In-Office wound check in 5-7 days
Copy to:
Giacomo Gan
Brandy Pickard
--- NOTE | 2025-06-01 17:14 | W.PN.HOSP.TC ---
Addendum entered and electronically signed by Seven Coelho MD 06/01/25 19:09:
I communicated with Dr. Giacomo Pickard (software engineering project manager) and he confirmed it is okay to continue patient's Coreg 12.5 mg BID this evening -- Coreg has been ordered. Continue to hold Xarelto until 06/03/25. Continue chemical DVT prophylaxis.
Original Note:
Today's Communication/Plan
-
Pacemaker today
Assessment / Plan
Assessment / Plan
Physical Exam
General: Other (79y M in no distress.)
HEENT: Moist mucous membranes and PERRLA
Respiratory: Clear; No Wheezes, Rales or Rhonchi
Cardiac: S1/S2, Regular Rhythm and Murmur (II/ ARIAS)
GI: Soft, Non Tender, Non Distended and Normal Bowel Sounds
Musculoskeletal: No Clubbing, No Cyanosis and Other (1+ pitting edema b//l ankles.)
Neuro: AO x 3
Assessment/Plan
79y M with PMH significant for ASCVD, hypertension and A-Fib who presented to ED complaining of weakness / near-syncope at home. Admission history was obtained from patient and his family at the bedside. Patient was feeling fairly well until the
evening of the day of presentation. Patient had to go to the bathroom and his daughter assisted him. Despite her assistance, he was very weak and unsteady on his feet -- patient stated he was fully conscious the entire time. He had several
near-falls but did not collapse. He denied any loss of consciousness. Daughter notes that he was diaphoretic and clammy. He seemed somewhat confused. Patient was incontinent of loose stool during this episode (daughter stated that he need to
have a bowel movement prior to the episode of near falling)
Patient denies any prior history of similar episodes.
In the ED, he was resting comfortably and denies any complaints at present.
Admitted with weakness, diaphoresis and near syncope 05/29/25
Vasovagal Episode
1st Degree AV Block
Junctional Rhythm
Hypotension
- Suspect vasovagal event - likely due to GI distress / need to move bowels.
- Patient also does not always have air conditioning at home (per patient's daughter), and recently it has been very hot -- dehydration is another possibility
- Tele showed significant 1st degree block with periods of junctional rhythm.
- Hold beta-blockade.
- Hold Amlodipine given relative hypotension.
- Continue to monitor for any significant blocks, pauses, etc.
- IV fluids support has been given
- Cardiology evaluation: pacemaker planned for today
- Echo was done earlier this month (EF = 68%, moderate , no change from prior study).
- Follow stool studies
Abnormal Troponin -- suspected non-ischemic myocardial injury
ASCVD
- No complaints of chest pain, dyspnea, etc.
- EKG with LVH / repolarization changes but no evident acute ischemia.
- Initial troponin mildly abnormal at 0.039 - trend to peak.
- Continue ASA, statin, etc.
- Follow for any new symptoms.
- Cardiology evaluation as noted above.
Benign Hypertension
- Will resume amlodipine and carvedilol after pacemaker
- Check orthostatic signs.
Paroxysmal Atrial Fibrillation (?)
- Daughter reports history of A-Fib and patient is on Xarelto (? for CAD).
- No prior EKG with A-Fib and diagnosis not listed in his chart that I could locate.
- Monitor on telemetry.
- Clarify with Cardiology
- Holding Xarelto acutely since patient will need pacemaker above
DVT Prophylaxis: SCDs. Lovenox.
Code Status: Full Code
On 05/30/25, I spoke with patient's daughter in person inside patient's room, and I answered all her questions and concerns to satisfaction.
On 05/31/25, I spoke with patient's daughter in person inside patient's room, and I answered all her questions and concerns to satisfaction.
On 06/01/25, I spoke with patient's daughter in person inside patient's room, and I answered all her questions and concerns to satisfaction.
Anticipated Discharge: 24 - 48 hours
Subjective/Interval History
-
Date of Service: June 01, 2025
Patient was seen and examined. He denied any new symptoms or complaints.
Objective Data
-
Labs:
Laboratory Results
06/01/25
07:26
WBC 4.5 L
Hgb 11.4 L
Hct 34.7 L
Plt Count 111 L
Sodium 141
Potassium 4.1
Chloride 113 H
Carbon Dioxide 25
BUN 23 H
Creatinine 0.9
Glucose 96
Calcium 8.7
Vital Signs:
Vital Signs
Temp Pulse Resp BP Pulse Ox
98.4 F 56 13 175/83 96
06/01/25 11:58 06/01/25 15:17 06/01/25 15:17 06/01/25 15:17 06/01/25 15:17
I&O
05/31/25 06/01/25 06/02/25
06:59 06:59 06:59
Intake Total 1200 / 1200 2910 / 2910
Output Total 1450 / 1450 1480 / 1480
Balance -250 / -250 1430 / 1430
--- NOTE | 2025-06-01 18:39 | PTCARENOTE ---
pt back from PPM, offers no complaints, call mccall within reach, daughter at bedside.
[2025-06-01] MEDS: LIPITOR 80 MG PO (19:01)
[2025-06-01] MEDS: LOVENOX 40 MG SC (19:01)
[2025-06-01] MEDS: COREG 12.5 MG PO (21:15)
[2025-06-01] MEDS: ANCEF 5 IV (21:15)
[2025-06-02] VITALS (13 sets, daily range): BP systolic 82–142; BP diastolic 53–125; PULSE 62; O2SAT 93; BMI 28.4
[2025-06-02] MEDS: ANCEF 5 IV ×2 (05:40→23:44)
[2025-06-02 06:48] LABS: Hematocrit 34.4 % (39.0-52.0); Hemoglobin 11.4 g/dL (13.0-18.0); Mean Corp Hgb Conc. 33.1 g/dL (33.0-37.0); Mean Corpuscular Volume 93.5 fL (80.0-94.0); Platelet Count 118 10^3/uL (130-400); Red Cell Dist. Width 13.6 % (11.5-14.5)
[2025-06-02 07:20] LABS: Blood Urea Nitrogen 19 mg/dl (9-20); Calcium 8.7 mg/dl (8.4-10.2); Carbon Dioxide 25 mmol/L (22-30); Chloride 110 mmol/L (98-107); Estimated Creatinine Clearance 54 ml/min; Glucose 102 mg/dl (70-99); Magnesium 1.9 mg/dl (1.6-2.3); Potassium 4.1 mmol/L (3.5-5.1); Sodium 140 mmol/L (135-145); eGFR > 60.00
[2025-06-02] MEDS: COREG 12.5 MG PO ×2 (08:41→19:37)
[2025-06-02] MEDS: LOW STRENGTH ASPIRIN 81 MG PO (08:41)
--- NOTE | 2025-06-02 09:05 | W.PN.HOSP.TC ---
Today's Communication/Plan
-
Symptomatic Hypotension needing further evaluation and found to have atrial lead dislodgement needing atrial lead revision
Monitor in IMU/IVU
Assessment / Plan
Assessment / Plan
Physical Exam
General: Other (79y M in no distress.)
HEENT: Moist mucous membranes and PERRLA
Respiratory: Clear; No Wheezes, Rales or Rhonchi
Cardiac: S1/S2, Regular Rhythm and Murmur (II/ ARIAS)
GI: Soft, Non Tender, Non Distended and Normal Bowel Sounds
Musculoskeletal: No Clubbing, No Cyanosis and Other (1+ pitting edema b//l ankles.)
Neuro: AO x 3
Assessment/Plan
79y M with PMH significant for ASCVD, hypertension and A-Fib who presented to ED complaining of weakness / near-syncope at home. Admission history was obtained from patient and his family at the bedside. Patient was feeling fairly well until the
evening of the day of presentation. Patient had to go to the bathroom and his daughter assisted him. Despite her assistance, he was very weak and unsteady on his feet -- patient stated he was fully conscious the entire time. He had several
near-falls but did not collapse. He denied any loss of consciousness. Daughter notes that he was diaphoretic and clammy. He seemed somewhat confused. Patient was incontinent of loose stool during this episode (daughter stated that he need to
have a bowel movement prior to the episode of near falling)
Patient denies any prior history of similar episodes.
In the ED, he was resting comfortably and denies any complaints at present.
Admitted with weakness, diaphoresis and near syncope 05/29/25
Symptomatic Bradycardia status post dual-chamber permanent pacemaker implantation on June 01, 2025
Vasovagal Episode
1st Degree AV Block
Junctional Rhythm
Hypotension
- Suspect vasovagal event - likely due to GI distress / need to move bowels.
- Patient also does not always have air conditioning at home (per patient's daughter), and recently it has been very hot -- dehydration is another possibility
- Tele showed significant 1st degree block with periods of junctional rhythm.
- Hold beta-blockade.
- Hold Amlodipine given relative hypotension.
- Continue to monitor for any significant blocks, pauses, etc.
- IV fluids support has been given
- Cardiology evaluation: pacemaker placed on 06/01/25
- Echo was done earlier this month (EF = 68%, moderate , no change from prior study).
- Follow stool studies
Symptomatic (lightheaded, 'feeling weird' per patient) Hypotension 06/02/25
-Received IV fluid boluses
-proBNP elevated
-Hypotension persisted, therefore transferred patient to IMU
-No wall motion abnormalities were present on echocardiogram
-Cardiology evaluation: patient's pacing atrial lead dislodged causing loss of AV synchrony causing symptomatic hypotension
-Given the above, patient going for lead revision today
Abnormal Troponin -- suspected non-ischemic myocardial injury and from active pacing lead placement
ASCVD
- No complaints of chest pain, dyspnea, etc.
- EKG with LVH / repolarization changes but no evident acute ischemia.
- Initial troponin mildly abnormal at 0.039 - trend to peak.
- Continue ASA, statin, etc.
- Follow for any new symptoms.
- Cardiology evaluation as noted above.
Benign Hypertension
- Hold Coreg and Amlodipine given the above -- once atrial lead is revised (as mentioned above), can reinitiate carvedilol.
- Check orthostatic signs.
Paroxysmal Atrial Fibrillation (?)
- Daughter reports history of A-Fib and patient is on Xarelto (? for CAD).
- No prior EKG with A-Fib and diagnosis not listed in his chart that I could locate.
- Monitor on telemetry.
- Clarify with Cardiology
- Holding Xarelto -- appreciate cardiology guidance regarding when to resume it, as above
Pancytopenia
- Will need outpatient hematology evaluation
DVT Prophylaxis: SCDs. Lovenox.
Code Status: Full Code
On 05/30/25, I spoke with patient's daughter in person inside patient's room, and I answered all her questions and concerns to satisfaction.
On 05/31/25, I spoke with patient's daughter in person inside patient's room, and I answered all her questions and concerns to satisfaction.
On 06/01/25, I spoke with patient's daughter in person inside patient's room, and I answered all her questions and concerns to satisfaction.
On 06/02/25, I spoke with patient's daughter in person inside patient's room, and I answered all her questions and concerns to satisfaction.
Anticipated Discharge: 24 - 48 hours
Subjective/Interval History
-
Date of Service: June 02, 2025
Patient was seen and examined. He was doing okay earlier in the morning, but later in the day he developed symptomatic hypotension.
Objective Data
-
Labs:
Laboratory Results
06/02/25
06:30
WBC 5.8
Hgb 11.4 L
Hct 34.4 L
Plt Count 118 L
Sodium 140
Potassium 4.1
Chloride 110 H
Carbon Dioxide 25
BUN 19
Creatinine 1.0
Glucose 102 H
Calcium 8.7
Vital Signs:
Vital Signs
Temp Pulse Resp BP Pulse Ox
98.9 F 79 16 107/75 94
06/02/25 07:00 06/02/25 08:41 06/02/25 07:00 06/02/25 08:41 06/02/25 07:00
I&O
06/01/25 06/02/25 06/03/25
06:59 06:59 06:59
Intake Total 2910 / 2910 240 / 240
Output Total 1480 / 1480 750 / 750
Balance 1430 / 1430 -510 / -510
[2025-06-02] MEDS: NSS 250 IV ×2 (11:22→13:28)
--- NOTE | 2025-06-02 12:30 | PTCARENOTE ---
Pt ambulated OOB with PT upon returning to chair pt was found to be hypotensive, this RN and PT assisted back to bed and VS were reevaluated, patient was still hypotensive. Upon evaluation, pt stated they felt 'weird', no complaints of cp, sob or
neuro deficits. Follow up manual BP continued to be low, see documented VS. MD was made aware, see MAR for interventions. Labs, ECHO & EKG completed as ordered, test director & MD to bedside to eval pt, orders to transfer pt to IMU initiated.
--- NOTE | 2025-06-02 13:21 | CM ---
Addendum entered by Fito Rodriguez 06/02/25 13:21:
Patient transferring to IMU.
Original Note:
Patient for possible discharge today or tomorrow. Managing hypotension. IMM signed.
[2025-06-02 13:22] LABS: Hematocrit 35.4 % (39.0-52.0); Hemoglobin 11.5 g/dL (13.0-18.0); Mean Corp Hgb Conc. 32.5 g/dL (33.0-37.0); Mean Corpuscular Volume 94.9 fL (80.0-94.0); Nucleated Red Blood Cells % 0 % (-); Platelet Count 109 10^3/uL (130-400); Red Cell Dist. Width 13.6 % (11.5-14.5)
[2025-06-02 13:48] LABS: ALT (SGPT) 12 U/L (0-50); AST (SGOT) 20 U/L (17-59); Albumin 3.3 g/dl (3.5-5.0); Alkaline Phosphatase 76 U/L (38-126); Blood Urea Nitrogen 18 mg/dl (9-20); Calcium 8.5 mg/dl (8.4-10.2); Carbon Dioxide 26 mmol/L (22-30); Chloride 108 mmol/L (98-107); Estimated Creatinine Clearance 49 ml/min; Glucose 123 mg/dl (70-99); Potassium 4.2 mmol/L (3.5-5.1); Sodium 138 mmol/L (135-145); Total Protein 5.5 g/dl (6.3-8.2); eGFR > 60.00
[2025-06-02 14:03] LABS: Troponin I 0.284 ng/ml
--- NOTE | 2025-06-02 14:33 | PN.CDI ---
CDI
- -
CDI:
Physician Documentation Request
Admit Date: 05/30/25 14:02
Dear Doctor Laquita,
Please review the following and provide your response in the progress notes.
Clinical Indicators:
- Patient admit with bradycardia, 1st degree AV block, junctional rhythm, near syncope
- 7/2 Dual chamber pacemaker inserted
- Labs as follows
Laboratory Tests
06/01/25 06/02/25 06/02/25
07: 06:30 13:08
WBC 4.5 L 5.8 4.7 L
RBC 3.71 L 3.68 L 3.73 L
Hgb 11.4 L 11.4 L 11.5 L
Plt Count 111 L 118 L 109 L
Please provide a diagnosis for the above lab values that were monitored:
Pancytopenia
Clinically insignificant abnormal lab value
Other (please specify)
Use of terms such as suspected, likely, concern for, or probable (associated with a specific diagnosis that is being evaluated, monitored, or treated as if it exists) are acceptable and can be coded in the inpatient setting, when documented at the
time of discharge.
Thank you,
Ruel Antonio RN
CDI Specialist
Please use your independent medical judgment in providing your response.
--- NOTE | 2025-06-02 15:49 | W.PN.CARDCBS ---
Today's Communication / Plan
-
Plan for atrial lead revision today
Impression / Plan
-
PCP: Dr. Giacomo Gan
Card: Dr. Brandy Pickard
Impression:
Admitted with weakness and near syncope 05/29/25
Near syncope
Hypotension
Intermittent junctional rhythm
First degree AV block
Elevated Troponin
Paroxysmal Afib
Chronic Xarelto OAC
HTN
CAD s/p overlapping 3 mm and 3 mm Cypher to LAD 2004
Moderate
Echo 05/02/2025: EF 60%, no WMA, mild MR, moderate peak/mean 45/23 mmHg and JAKE 1.2 cm sq, trace TR
Plan:
He has symptomatic bradycardia in the form of marked sinus bradycardia as well as high-grade AV block and underwent dual-chamber permanent pacemaker implantation on June 01, 2025.
Today he complained of feeling ' weird' and it was noted that systolic blood pressures were in the mid 80s to low 90s.
Review of telemetry suggest that his newly placed atrial lead dislodged at around 9 PM on the evening of June 01, 2025. This has resulted in loss of AV synchrony.
I checked a bedside echocardiogram which finds normal LV and RV size and function. There is a trace anterior pericardial effusion at the right ventricle but no hemodynamic compromise.
His symptoms are likely related to dislodgment of the right atrial lead with loss of AV synchrony.
I discussed this with the patient and I also called his daughter and discussed it with her.
I recommended moving towards atrial lead revision today. They are both in agreement.
Once atrial lead is revised, can reinitiate carvedilol.
Of note he has history of paroxysmal atrial fibrillation and his outpatient dose of Xarelto 20 mg daily has been on hold. Will continue to hold and reevaluate after lead revision regarding when we will resume anticoagulation.
HPI: Patient came to [facility] ER early this morning with near syncope and was admitted with bradycardia and cardiology has been consulted. Patient lives with his daughter and she was helping him to the bathroom when he became too weak to stand on his
own and fell back into a chair, he was briefly unresponsive but eyes were always open. ECG in the ER showed known chronic LBBB and first-degree AV block. Telemetry in the ER apparently showed periods of junctional rhythm. Patient was admitted and
his outpatient dose of Coreg 12.5 mg BID was placed on hold. Patient also noted to be hypotensive at 97/60 so his outpatient dose of amlodipine 2.5 mg daily was also placed on hold. Patient has received 1.5 L IVF since admission and BP improved to
122/60. No recurrence of near syncope, but he has not had a chance to work with PT/OT yet. Of note patient and daughters home does not have air conditioning and instead they rely on fans.
Progress Note - Automotive Electrician
Subjective
Date of Service: June 02, 2025
He tells me that he has been feeling weird this morning and this coincides with a modest drop in his blood pressure. No chest pain or shortness of breath. No palpitations. some mild dizziness but no near-syncope or syncope
Objective
Labs:
06/02/25 13:08
06/02/25 13:08
Labs
Hgb 11.5 g/dL (13.0-18.0) L 06/02/25 13:08
Hct 35.4 % (39.0-52.0) L 06/02/25 13:08
Plt Count 109 10^3/uL (130-400) L 06/02/25 13:08
Sodium 138 mmol/L (135-145) 06/02/25 13:08
Potassium 4.2 mmol/L (3.5-5.1) 06/02/25 13:08
BUN 18 mg/dl (9-20) 06/02/25 13:08
Creatinine 1.1 mg/dL (0.7-1.3) 06/02/25 13:08
Glucose 123 mg/dl (70-99) H 06/02/25 13:08
Troponins
05/30/25 06/02/25
20:06 13:08
Troponin I 0.099 H* 0.284 H*
Vital Signs and I&O:
Vital Signs
Temp Pulse Resp BP Pulse Ox
99.1 F 64 16 105/70 96
06/02/25 14:10 06/02/25 14:10 06/02/25 14:10 06/02/25 14:10 06/02/25 14:10
Vital Signs
Temp Pulse Resp BP Pulse Ox
99.1 F 64 16 105/70 96
06/02/25 14:10 06/02/25 14:10 06/02/25 14:10 06/02/25 14:10 06/02/25 14:10
Intake & Output
05/31/25 06/01/25 06/02/25 06/03/25
06:59 06:59 06:59 06:59
Intake Total 1200 / 1200 2910 / 2910 240 / 240 300 / 300
Output Total 1450 / 1450 1480 / 1480 750 / 750 375 / 375
Balance -250 / -250 1430 / 1430 -510 / -510 -75 / -75
Physical Exam
Physical Exam
Resting in bed, no acute distress
Heart is regular normal S1 and S2, no S3 no S4 is a grade 1/6 apical holosystolic murmur no rubs. PMI is normally placed
Lungs are clear to auscultation bilaterally without wheezes rales or rhonchi
Extremities show +1 pretibial edema bilaterally
Abdomen soft nontender nondistended with normoactive bowel sounds
--- NOTE | 2025-06-02 16:36 | PTCARENOTE ---
Patient arrived via bed from via bed, accompanied by RN. He is alert and oriented x 3, denies pain. admits to discomfort from having left arm immobilizer in place. CMS intact to left hand. Pt has original post pacemaker Aquacell dressing intact
with shadow of old drainage. Pt going for pacemaker investigation. Pt provided with CHG wipe down upon arrival to unit. Heart monitor 100% V paced/BBB, questionable spiking on QRS and this is to be investigated in EP lab. Report given to Ben in EP
lab and Team arrived to transport pt to procedure. Pt's daughter at bedside and will wait in director of labor relations waiting area during procedure
--- NOTE | 2025-06-02 17:58 | ITS.CL.PACE ---
Electrocardiograph Technician - Pacemaker Implant
Pacemaker Implant
Procedure Report:
Date of Procedure: June 02, 2025
Patient : 1945
Procedure: Pacemaker Implantation.
Indication: Atrial lead revision for atrial lead dislodgment
Implants:
Pulse Generator: Medtronic; Model# W1 DR 01; SN: [id number] implanted June 01, 2025
RA Lead: Medtronic; Model# 5076; SN: [id number] implanted June 01, 2025
RV Lead: Medtronic; Model# 3830; SN: [id number] implanted June 01, 2025
Technique: A time out was performed. The procedure site was identified. The patient was anesthetized by the anesthesia service. Preoperative sedation was administered. The patient was prepped and draped in the usual fashion. Local anesthetic was
applied to the left prepectoral subcutaneous tissue. A 3 inch incision was made 2.5 inches below the left clavicle. A subcutaneous pocket was created with blunt and sharp dissection and hemostasis controlled with Bovie cautery. The atrial lead was
identified and removed from the generator. A straight stylette was placed and the helix was retracted and the atrial lead was removed from the mid free wall of the right ventricle. There was no hypotension associated with helix retraction and lead
removal into the atrium. The suture sleeve was cut and a J stylette was advanced and the lead was placed into the right atrial appendage. Adequate parameters but only moderate current of injury was noted and with aggressive removal of the stylette
the lead dislodged acutely. As such I elected to utilize a different position in the right atrium utilizing the lateral cesia terminalis with 12 turns of the helix a more prominent current of injury was noted with excellent sensing and threshold
which improved and finished at 0.5 V at 0.5 ms. Another aggressive withdrawal of the J stylette was performed and the lead did not dislodge and a straight stylette was placed into the mid portion of the lead with the suture sleeve then tied down.
Antibiotic pouch was placed into the pocket.. 10 volt pacing did not capture the diaphragm. The leads were secured to the pectoralis muscle and fascia. The leads were appropriately attached to the device. The pocket was irrigated with antibiotic
solution. The device and leads were placed in the pocket. The incision was closed in three layers with absorbable suture. The estimated blood loss was minimal. There were no complications.��Will place a pressure dressing and head of bed greater than
30 degrees overnight
Lead Analysis:
RA lead: P: 2.6 mV; Threshold: 0.5 V @ 0.5��ms; Impedance: 380 ohms.
RV lead: R: Greater than 20 mV; Threshold: 0.5 V @ 0.5��ms; Impedance: 494 ohms.
Final Programming: DDDR 6130 bpm
�
Conclusion: Uncomplicated atrial lead revision.
Recommendation: Routine post pacemaker care.
--- NOTE | 2025-06-02 18:21 | PTCARENOTE ---
patient returned post procedure. Immobilizer clean dry intact, CMS intact to left upper arm. PAcer site dressing is CDI. Pt denies pain. Daughter at bedside and reports that she received update form EP doctor
[2025-06-02] MEDS: LIPITOR 80 MG PO (19:37)
[2025-06-02] MEDS: LOVENOX 40 MG SC (19:38)
[2025-06-02 20:09] LABS: Troponin I 0.235 ng/ml
--- NOTE | 2025-06-02 20:46 | PTCARENOTE ---
Addendum entered by Génesis Wilcox RN 06/03/25 01:03:
CXR obtained.
Original Note:
Pt received at beginning of shift resting in bed. AAOx3. Daughter at bedside. Pt admits to pain to LE thighs R>L. +pulses, temp, warm to touch and full sensation. Pt did eat dinner and stated afterwards his pain had done away. Pressure dressing
intact to left chest wall with immobilizer in place and HOB at 30 degrees. Troponin obtained and resulted 0.235. Hephzeba VIDEO CONTROL OPERATOR on floor and made aware. Will recheck all labs at 0200. Currently rhythm intermittently changing from V paced to AV paced
on CM rate 55-62. Pt denies any chest pain, discomfort, dizziness. SBP 120's. POX RA 94%. Rest of assessment as documented. Call mccall remains within reach. Will continue to monitor.
[2025-06-02] MEDS: FLUSH (NSS) 2 FLUSH IV (23:45)
[2025-06-03] VITALS (7 sets, daily range): BP systolic 123–145; BP diastolic 69–89; BMI 29.5
[2025-06-03 01:45] LABS: Hematocrit 35.9 % (39.0-52.0); Hemoglobin 12.0 g/dL (13.0-18.0); Mean Corp Hgb Conc. 33.4 g/dL (33.0-37.0); Mean Corpuscular Volume 93.2 fL (80.0-94.0); Platelet Count 109 10^3/uL (130-400); Red Cell Dist. Width 13.7 % (11.5-14.5)
[2025-06-03 02:04] LABS: Blood Urea Nitrogen 18 mg/dl (9-20); Calcium 8.8 mg/dl (8.4-10.2); Carbon Dioxide 26 mmol/L (22-30); Chloride 109 mmol/L (98-107); Estimated Creatinine Clearance 54 ml/min; Glucose 119 mg/dl (70-99); Magnesium 2.0 mg/dl (1.6-2.3); Potassium 4.3 mmol/L (3.5-5.1); Sodium 140 mmol/L (135-145); eGFR > 60.00
[2025-06-03 02:23] LABS: Troponin I 0.184 ng/ml
[2025-06-03] MEDS: ANCEF 5 IV (06:03)
[2025-06-03] MEDS: FLUSH (NSS) 2 FLUSH IV (06:03)
[2025-06-03] MEDS: LOW STRENGTH ASPIRIN 81 MG PO (08:30)
--- NOTE | 2025-06-03 08:51 | W.PN.HOSP.TC ---
Today's Communication/Plan
-
Discharge today
Assessment / Plan
Assessment / Plan
Physical Exam
General: Other (79y M in no distress.)
HEENT: Moist mucous membranes and PERRLA
Respiratory: Clear; No Wheezes, Rales or Rhonchi
Cardiac: S1/S2, Regular Rhythm and Murmur (II/ ARIAS)
GI: Soft, Non Tender, Non Distended and Normal Bowel Sounds
Musculoskeletal: No Clubbing, No Cyanosis and Other (1+ pitting edema b//l ankles.)
Neuro: AO x 3
Assessment/Plan
79y M with PMH significant for ASCVD, hypertension and A-Fib who presented to ED complaining of weakness / near-syncope at home. Admission history was obtained from patient and his family at the bedside. Patient was feeling fairly well until the
evening of the day of presentation. Patient had to go to the bathroom and his daughter assisted him. Despite her assistance, he was very weak and unsteady on his feet -- patient stated he was fully conscious the entire time. He had several
near-falls but did not collapse. He denied any loss of consciousness. Daughter notes that he was diaphoretic and clammy. He seemed somewhat confused. Patient was incontinent of loose stool during this episode (daughter stated that he need to
have a bowel movement prior to the episode of near falling)
Patient denies any prior history of similar episodes.
In the ED, he was resting comfortably and denies any complaints at present.
Admitted with weakness, diaphoresis and near syncope 05/29/25
Symptomatic Bradycardia status post dual-chamber permanent pacemaker implantation on June 01, 2025
Vasovagal Episode
1st Degree AV Block
Junctional Rhythm
Hypotension
- Patient also does not always have air conditioning at home (per patient's daughter), and recently it has been very hot -- dehydration is another possibility
- Tele showed significant 1st degree block with periods of junctional rhythm.
- Hold beta-blockade.
- Hold Amlodipine given relative hypotension.
- Continue to monitor for any significant blocks, pauses, etc.
- IV fluids support has been given
- Cardiology evaluation: pacemaker placed on 06/01/25 and lead revision on 06/02/25 secondary to atrial lead dislodgement causing loss of AV synchrony
- Outer bulky dressing can be removed on 06/04/25 morning by the patient. He will maintain the Aquacel dressing underneath until it is removed in Dr. Pickard's office next week.
- Echo was done earlier this month (EF = 68%, moderate , no change from prior study).
- Follow stool studies
Symptomatic (lightheaded, 'feeling weird' per patient) Hypotension 06/02/25 -- Hypotension Secondary to pacing atrial lead dislodged causing loss of AV synchrony status post lead revision on 06/02/25
-Received IV fluid boluses
-proBNP elevated
-Hypotension persisted, therefore transferred patient to IMU on 06/02/25 -- patient went for lead revision, now doing better
-No wall motion abnormalities were present on echocardiogram
-Cardiology evaluation: patient's pacing atrial lead dislodged causing loss of AV synchrony causing symptomatic hypotension
Abnormal Troponin -- suspected non-ischemic myocardial injury and from active pacing lead placement
ASCVD
- No complaints of chest pain, dyspnea, etc.
- EKG with LVH / repolarization changes but no evident acute ischemia.
- Continue ASA, statin, etc.
- Follow for any new symptoms.
- Cardiology evaluation as noted above.
Benign Hypertension
- Coreg resumed
- Resume Amlodipine outpatient after blood pressure is stable
Paroxysmal Atrial Fibrillation (?)
- Monitor on telemetry.
- Appreciate cardiology
- Okay to resume Xarelto 20 mg daily starting 06/04/2025
Pancytopenia
- Will need outpatient hematology evaluation
DVT Prophylaxis: SCDs. Lovenox.
Code Status: Full Code
On 05/30/25, I spoke with patient's daughter in person inside patient's room, and I answered all her questions and concerns to satisfaction.
On 05/31/25, I spoke with patient's daughter in person inside patient's room, and I answered all her questions and concerns to satisfaction.
On 06/01/25, I spoke with patient's daughter in person inside patient's room, and I answered all her questions and concerns to satisfaction.
On 06/02/25, I spoke with patient's daughter in person inside patient's room, and I answered all her questions and concerns to satisfaction.
More than 30 minutes spent in discharge including
Final examination of the patient
Summarizing hospital stay
Instructions for continuing care to all relevant caregivers
Preparation of discharge records, prescriptions, and referral forms
Total time spent (in minutes): 35
Anticipated Discharge: Today
Subjective/Interval History
-
Date of Service: June 03, 2025
Patient was seen and examined. He was doing well today, he denied any dizziness, chest pain, shortness of breath or any other symptoms or complaints.
Objective Data
-
Labs:
Laboratory Results
06/03/25 06/03/25
01:26 01:29
WBC 5.1
Hgb 12.0 L
Hct 35.9 L
Plt Count 109 L
Sodium 140
Potassium 4.3
Chloride 109 H
Carbon Dioxide 26
BUN 18
Creatinine 1.0
Glucose 119 H
Calcium 8.8
Vital Signs:
Vital Signs
Temp Pulse Resp BP Pulse Ox
97.9 F 60 14 139/77 96
06/03/25 07:41 06/03/25 06:00 06/03/25 06:00 06/03/25 06:00 06/03/25 06:00
I&O
06/02/25 06/03/25 06/04/25
06:59 06:59 06:59
Intake Total 240 / 240 300 / 300
Output Total 750 / 750 1625 / 1625 675 / 675
Balance -510 / -510 -1325 / -1325 -675 / -675
[2025-06-03] MEDS: COREG 12.5 MG PO (09:52)
--- NOTE | 2025-06-03 09:59 | CM ---
CM following re: discharge planning.
Reviewed pt's chart, met with pt.
According to pt is medically stable to be discharged today. Pt is aware, expressed his agreement with discharge and pt stated his daughter is coming to transport home. IMM reviewed, placed on chart, pt has a copy.
PT and OT evaluations noted - home PT/OT recommended. Pt is aware and he stated he had VN services in the past, does not remember the name of VN provider and pt stated his daughter knows.
CM spoke to pt's daughter Lenora and she stated she is on her way to the hospital to bring her father home. Per daughter, pt had [facility] in the past, not currently and pt's daughter stated because pt is going to she requested [facility] for
continuity of care. A referral to [facility] made.
Please fax discharge instructions to [facility] at [phone]
D/C plan: home with [facility] and family support. Daughter to transport.
--- NOTE | 2025-06-03 10:03 | W.PN.CARDCBS ---
Today's Communication / Plan
-
Okay to resume Xarelto 20 mg daily starting 06/04/2025
Outer bulky dressing can be removed tomorrow morning by the patient. He will maintain the Aquacel dressing underneath until it is removed in my office next week
Okay for discharge to home from a cardiac standpoint
Impression / Plan
-
PCP: Dr. Giacomo Gan
Card: Dr. Brandy Pickard
Impression:
Admitted with weakness and near syncope 05/29/25
Near syncope
Hypotension
Intermittent junctional rhythm
First degree AV block
Elevated Troponin
Paroxysmal Afib
Chronic Xarelto OAC
HTN
CAD s/p overlapping 3 mm and 3 mm Cypher to LAD 2004
Moderate
Echo 05/02/2025: EF 60%, no WMA, mild MR, moderate peak/mean 45/23 mmHg and JAKE 1.2 cm sq, trace TR
Plan:
He has symptomatic bradycardia in the form of marked sinus bradycardia as well as high-grade AV block and underwent dual-chamber permanent pacemaker implantation on June 01, 2025.
Today he complained of feeling ' weird' and it was noted that systolic blood pressures were in the mid 80s to low 90s.
Review of telemetry suggest that his newly placed atrial lead dislodged at around 9 PM on the evening of June 01, 2025. This has resulted in loss of AV synchrony.
I checked a bedside echocardiogram which finds normal LV and RV size and function. There is a trace anterior pericardial effusion at the right ventricle but no hemodynamic compromise.
His symptoms are likely related to dislodgment of the right atrial lead with loss of AV synchrony.
I discussed this with the patient and I also called his daughter and discussed it with her.
We decided to proceed with revision of the right atrial lead. This was successfully performed by Dr. Crystal on 06/02/2025.
He has clinically improved.
Carvedilol has been resumed.
Okay to resume Xarelto 20 mg daily starting 06/04/2025
Outer bulky dressing can be removed tomorrow morning by the patient. He will maintain the Aquacel dressing underneath until it is removed in my office next week
Okay for discharge to home from a cardiac standpoint
Please call us back if we can be of any further assistance.
HPI: Patient came to [facility] ER early this morning with near syncope and was admitted with bradycardia and cardiology has been consulted. Patient lives with his daughter and she was helping him to the bathroom when he became too weak to stand on his
own and fell back into a chair, he was briefly unresponsive but eyes were always open. ECG in the ER showed known chronic LBBB and first-degree AV block. Telemetry in the ER apparently showed periods of junctional rhythm. Patient was admitted and
his outpatient dose of Coreg 12.5 mg BID was placed on hold. Patient also noted to be hypotensive at 97/60 so his outpatient dose of amlodipine 2.5 mg daily was also placed on hold. Patient has received 1.5 L IVF since admission and BP improved to
122/60. No recurrence of near syncope, but he has not had a chance to work with PT/OT yet. Of note patient and daughters home does not have air conditioning and instead they rely on fans.
Progress Note - Amortization Schedule Clerk
Subjective
Date of Service: June 03, 2025
He feels better today. No chest pain shortness of breath palpitations or dizziness
Objective
Labs:
06/03/25:
06/03/25:
Labs
Hgb 12.0 g/dL (13.0-18.0) L 06/03/25:
Hct 35.9 % (39.0-52.0) L 06/03/25:
Plt Count 109 10^3/uL (130-400) L 06/03/25:
Sodium 140 mmol/L (135-145) 06/03/25:
Potassium 4.3 mmol/L (3.5-5.1) 07/04/25 01:26
BUN 18 mg/dl (9-20) 06/03/25 01:26
Creatinine 1.0 mg/dL (0.7-1.3) 06/03/25 01:26
Glucose 119 mg/dl (70-99) H 06/03/25 01:26
Troponins
06/02/25 06/02/25 06/03/25
13:08 19:34 01:29
Troponin I 0.284 H* 0.235 H* 0.184 H*
Vital Signs and I&O:
Vital Signs
Temp Pulse Resp BP Pulse Ox
97.9 F 60 14 126/76 96
06/03/25 07:41 06/03/25 09:52 06/03/25 06:00 06/03/25 09:52 06/03/25 06:00
Vital Signs
Temp Pulse Resp BP Pulse Ox
97.9 F 60 14 126/76 96
06/03/25 07:41 06/03/25 09:52 06/03/25 06:00 06/03/25 09:52 06/03/25 06:00
Intake & Output
06/01/25 06/02/25 06/03/25 06/04/25
06:59 06:59 06:59 06:59
Intake Total 2910 / 2910 240 / 240 300 / 300
Output Total 1480 / 1480 750 / 750 1625 / 1625 675 / 675
Balance 1430 / 1430 -510 / -510 -1325 / -1325 -675 / -675
Physical Exam
Physical Exam
Well-appearing no acute distress.
Bandage left upper chest is clean and dry
Regular rate and rhythm normal S1 and S2 no S3 no S4 is reviewed 1/ apical holosystolic murmur no rubs. PMI is normally placed
Lungs are clear auscultation bilaterally without wheezes rales or rhonchi
--- NOTE | 2025-06-03 12:19 | PTCARENOTE ---
assumed care after morning report. Received pt on 2 L NC, pt weaned to room air. Home ambulatory Oxygen eval completed by respiratory and documented. Pt did not desaturate. Pt AV paced on monitor, no complaints of chest pain, dizziness or
discomfort. Only complaint is the challenge of wearing the immobilizer. Pt verbalizes understanding of importance and also verbalizes understanding of arm limitations after immobilizer is removed this PM. Pressure dressing intact to pacemaker site
CDI. CMS to left upper extremity intact. Daughter at bedside for planned discharge today
--- NOTE | 2025-06-03 13:47 | W.DCSUMMARY ---
Discharge Summary
Discharge Data
Date of Admission: 05/30/25
Date of Discharge: 06/03/25
Total time spent discharging patient (in min): 35
-
Pending Results: No
Hospital Course
79 y/o male with past medical history of Paroxysmal Atrial Fibrillation (on anticoagulation with Xarelto), hypertension, CAD s/p overlapping 3 mm and 3 mm Cypher to LAD 2004 and moderate aortic stenosis, who presented with near syncope and
generalized weakness at home. Patient was given intravenous fluids and his symptoms improved. Cardiology was consulted and noted patient's intermittent junctional rhythm, as well as LBBB and long first-degree AV block. Patient had a pacemaker placed
on 06/01/25, Coreg was resumed, the next day he had symptomatic hypotension which was determined to be due to lead dislodgement from the pacemaker placement, patient then went for lead revision, after which he did well while getting Coreg. Patient
was stable for discharge.
Discharge Plan
-
Patient Disposition: Home (Routine Discharge)
Discharge Diagnosis/Procedures: Pacemaker implant 06/01/25, RA lead revision 06/02/25
Admitted with weakness, diaphoresis and near syncope 05/29/25
Symptomatic Bradycardia status post dual-chamber permanent pacemaker implantation on June 01, 2025
Vasovagal Episode
1st Degree AV Block
Intermittent Junctional Rhythm
Hypotension
Symptomatic (lightheaded, 'feeling weird' per patient) Hypotension 06/02/25 -- Hypotension Secondary to pacing atrial lead dislodged causing loss of AV synchrony status post lead revision on 06/02/25
Abnormal Troponin -- suspected non-ischemic myocardial injury and from active pacing lead placement
ASCVD
Benign Hypertension
Paroxysmal Atrial Fibrillation
Pancytopenia
Condition: Good
Diet: Low Fat, Low Cholesterol, Low Sodium and 2 Gram Sodium
Activity: As tolerated
Driving Restrictions: No driving for 1 week
Bathing Restrictions: OK to Shower
Activity Restrictions/Additional Instructions:
Follow the special instructions regarding what kind of limitations you have for activity after pacemaker placement.
Outer bulky dressing can be removed on 06/04/25 morning by the patient.
Patient will maintain the Aquacel dressing underneath until it is removed in Dr. Pickard's office next week.
Stand Alone Forms: DC Inst - Implanted Device
Referrals:
[facility] [Provider Group] - 06/08/25 1:00 pm
Referral Note: Incision check appointment
Giacomo Gan MD [Family Provider, Family Practice]
Krista Emerson MD [Active, Oncology] - in one to two weeks
Referral Note: Pancytopenia
Additional Discharge Medication Instructions: -Hold Xarelto for now -- but resume Xarelto 20 mg daily on June 04, 2025
-Hold Amlodipine for now to avoid a significant blood pressure drop -- discuss with outpatient biofuels plant superintendent or primary care provider about when to resume it.
Prescriptions:
Continued
atorvastatin 80 MG tablet
80 mg PO QPM
carvedilol 12.5 MG tablet
12.5 mg PO BID
aspirin 81 mg Tablet
81 mg PO DAILY
ezetimibe 10 mg Tablet
10 mg PO DAILY
Held
amlodipine 2.5 mg Tablet
2.5 mg PO DAILY
Hold Instructions: Resume on 06/17/25. Ask your primary care provider and/or biofuels plant superintendent about when to resume this medication.
Xarelto 20 mg Tablet
20 mg PO DAILY
Hold Instructions: Resume on 06/04/25.
Discharge Orders:
Discharge Patient (As Directed); Ordered 06/03/25
Ordered By: Seven Coelho
Discharge Date and Time
Discharge Date/Time: 06/03/25 15:28
Print Language: KHMER
--- NOTE | 2025-06-03 15:43 | PTCARENOTE ---
Patient discharged by medical team. He has been able to get OOB and ambulate to and from bathroom with walker and 1 person assisting on left side with arm in immobilizer. Daughter is at bedside and has review instruction packet with myself and pt
and she verbalizes understanding of all and has no further questions. Pt assisted into Clothes from home. Pt without any complaints of pain, dizziness, lightheaded ness. Monitor AV or V pacing, heart rate 60. Pressure dressing intact at discharge,
CDI, Immobilizer intact, CMS intact to left extremity.
== END 2025-06-03 15:28 | disposition home health service (06) | DRG 243 ==
LOC: IMU 14:02
PROVIDERS: Internal Medicine Cardiovascular Disease; ADMITTING PHYSICIAN Hospitalist; ATTENDING PHYSICIAN Hospitalist; EMERGENCY PHYSICIAN Emergency Medicine; FAMILY PHYSICIAN Family Medicine; OTHER PHYSICIAN Nuclear Medicine Nuclear Cardiology
PROC: 0JH606Z Insertion of Pacemaker, Dual Chamber into Chest Subcutaneous Tissue and Fascia, Open Approach (ICD-10-PCS; 2025-06-01)
PROC: 02HL3JZ Insertion of Pacemaker Lead into Left Ventricle, Percutaneous Approach (ICD-10-PCS; 2025-06-01)
PROC: 02H63JZ Insertion of Pacemaker Lead into Right Atrium, Percutaneous Approach (ICD-10-PCS; 2025-06-01)
PROC: 02WA3MZ Revision of Cardiac Lead in Heart, Percutaneous Approach (ICD-10-PCS; 2025-06-02)
DX: R00.1 Bradycardia, unspecified (principal); D61.818 Other pancytopenia; I5A Non-ischemic myocardial injury (non-traumatic); T82.120A Displacement of cardiac electrode, initial encounter; I44.1 Atrioventricular block, second degree; I95.9 Hypotension, unspecified; I44.7 Left bundle-branch block, unspecified; I25.10 Atherosclerotic heart disease of native coronary artery without angina pectoris; I10 Essential (primary) hypertension; I48.0 Paroxysmal atrial fibrillation; I71.40 Abdominal aortic aneurysm, without rupture, unspecified; I35.0 Nonrheumatic aortic (valve) stenosis; Y71.2 Prosthetic and other implants, materials and accessory cardiovascular devices associated with adverse incidents; Z95.5 Presence of coronary angioplasty implant and graft; Z79.82 Long term (current) use of aspirin; Z79.01 Long term (current) use of anticoagulants; Z11.52 Encounter for screening for COVID-19
CPT/HCPCS: 33208; 33215; 71045; 80048; 80053; 80061; 81003; 81015; 83036; 83735; 83880; 84439; 84443; 84484; 85025; 85027; 87045; 87046; 87077; 87427; 87502; 87811; 93005; 93308; 96360; 97110; 97116; 97162; 97166; 97530; 97535; 99285; C1769; C1785; C1887; C1892; C1898; Q9967

== ENCOUNTER 2025-06-08 05:27 | Observation (INO) | payer MEDICARE, BC, SELFPAY ==
[2025-06-08] VITALS (7 sets, daily range): BP systolic 99–162; BP diastolic 54–98; BMI 30.3
--- NOTE | 2025-06-08 04:00 | ED.GENMED ---
History of Present Illness
General
Chief Complaint: Post Operative Problem(s)
Source: patient and family
Exam Limitations: none
Time Seen by Provider: 06/08/25 03:09
Nursing documentation reviewed up to this point in time: agreed with
History of Present Illness
History of Present Illness:
Note:
CHIEF COMPLAINT(S)
Pain and concern with pacemaker device.
HISTORY OF PRESENT ILLNESS
The patient is an 79-year-old male who reports issues with his pacemaker, which was originally placed on the third of the month. The patient noticed this evening that suddenly the area started to burn and upon palpation, he felt as though the
pacemaker might have been out of place. The patient expressed concern about the possibility of the device dislodging or malfunctioning. He described the sensation as a significant burning, prompting his concern. He has been visiting the facility
frequently over the past few days due to these issues. The patient is seeking evaluation to understand the sudden sensation and potential pain management, and inquires if an operation may be required. He was assured that if an operation is needed,
it would not occur that evening.
PHYSICAL EXAM
- Nursing notes reviewed and vital signs reviewed.
PLAN
- Order an X-ray to assess the pacemaker.
- Consult with the cardiology team to determine the appropriate next steps.
- Provide pain management; the patient mentioned needing pain relief.
- The patient currently has an intravenous line in place for medication administration.
DIFFERENTIAL DIAGNOSIS
The Differential Diagnosis includes, in no particular order and is not limited to:
- Pacemaker lead dislodgement
- Pacemaker pocket infection
- Pacemaker malfunction
- Soft tissue infection
- Hematoma in pacemaker pocket
- Skin irritation or dermatitis
- Neuropathic pain
- Localized trauma
- Hemorrhage into the pacemaker pocket
- Foreign body sensation or pain due to device placement
CARE-UPDATE
06/08/25 - 03:[address] Dimitri Robles from [facility] recommended admission to the hospital service with a consult to their cardiology team.
Disposition:
SUMMARY OF ENCOUNTER
The patient, an 79-year-old male, presented with concerns about his pacemaker. He reported a sudden burning sensation and felt as though the device was out of place, accompanied by pain. Upon physical examination, there was noticeable bulging of the
left chest wall. An x-ray was performed to assess the pacemaker, but no obvious abnormalities were detected. He was experiencing significant discomfort, and after consultation with wood craftsman Dr. Robles, it was recommended that he be admitted for
further evaluation by the hospital service.
DISPOSITION
Admit
ASSESSMENT
The patient presents with pain and potential issues related to his pacemaker placement, four days post-procedure, with observed bulging of the left chest wall.
MANAGEMENT OF THE PATIENTS CARE WAS DISCUSSED WITH
Discussion with Dr. Dimitri Robles from [facility], who recommended hospital admission for further evaluation and management.
PLAN
Admit the patient to the hospital service for further evaluation of pacemaker-related issues and potential intervention by the cardiology team.
INDEPENDENT REVIEW OF LABS AND INTERPRETATION OF TESTS
My independent interpretation of the chest x-ray shows no obvious abnormalities regarding the pacemaker placement.
MEDICATION RECONCILIATION
Pain relief was discussed as a needed intervention, although specific medications were not detailed.
MEDICAL DECISION MAKING
-Complexity of Data Reviewed: Chronic conditions affecting care; the differential diagnosis includes pacemaker lead dislodgement, pacemaker pocket infection, pacemaker malfunction, soft tissue infection, hematoma in the pacemaker pocket, skin
irritation or dermatitis, neuropathic pain, localized trauma, hemorrhage into the pacemaker pocket, and foreign body sensation or pain due to device placement.
-Data:
Category 3: Discussion of management with wood craftsman Dr. Robles for hospital admission due to potential pacemaker issues.
DIAGNOSIS
1. Possible pacemaker lead dislodgement (Z45.010)
2. Pacemaker pocket pain (T82.868A)
3. Pain in left chest wall (R07.89)
Past History
Past History
ED Past Medical History: HTN
ED Past Surgical History: Urological
Social History
Drug: None
Living: with family
Employment: Employed
Review of Systems
Review of Systems
Allergies reviewed?: Yes
All Other Systems: ROS reviewed and negative except as documented in HPI and ROS
Cardiac: Reports other (Left chest wall pain)
Psychiatric: Reports anxiety
Phy Exam
Physical Exam
Physical Exam:
.
Cardiovascular Exam
Cardiovascular Exam: other (Left chest wall bulging.)
Neurological Exam
Neurological Exam: alert and oriented x3
Musculoskeletal Exam
Musculoskeletal Exam: full ROM
Skin Exam
Skin Exam: normal color and warm/dry
Psychiatric Exam
Psychiatric Exam: normal mood/affect and anxious
Course
Orders/Labs/Results
Orders:
Orders
06/08/25 00:39
ECG [Electrocardiogram (*1)] Urgent
Reason for Study: Other
Other Reason for Exam: PACEMAKER CONCERN
06/08/25 00:40
EKG- Treatment ONCE
06/08/25 03:18
CR Chest - 2 Views Urgent
Comment:
Reason For Exam: pacemaker dislodgement
06/08/25 03:34
Morphine Sulfate 4 mg IV NOW STA
Ondansetron Injectable [Zofran] 4 mg IV NOW STA
06/08/25 04:20
Complete Blood Count/With Diff Urgent
Comprehensive Metabolic Panel Urgent
06/08/25 05:00
CARDIOLOGY CONSULT Routine
Consulting Provider: Dimitri Garvin
Was physician already notified: No
Reason for consult: s/p PPM with swelling of the pocket
06/08/25 05:01
Admit/Transfer Patient As Directed
Co-Sign Provider:
Level of Care: Observation services
Assign to:: Medical/Surgical
Physician / Group: Hospitalist
Diagnosis: PPM pocket swelling
Reason for Hospitalization: PPM pocket swelling
Consult Notification Routine
Specialty to Notify: Cardiology
PRN Pain Medication Management As Directed
May give lesser potent ordered pain med per pt: Yes
preference::
Protocol:: Medication orders for pain may be administered in a
manner that supports deferring to patient preference
when the pt is:
- Requesting an ordered lesser potent pain medication.
Least to most potent pain medications are defined
as: acetaminophen < NSAID < tramadol < opioids
(morphine, oxycodone, hydromorphone).
- Requesting a lesser dose of the same medication IF
ORDERED.
- Requesting a less intrusive route of administration
if both routes are prescribed by the provider (PO <
IV).
06/08/25 08:00
Amlodipine [Norvasc] 2.5 mg PO DAILY
Aspirin Low Dose EC [Aspir Low (Enteric Coated)] 81 mg PO DAILY
Carvedilol [Coreg] 12.5 mg PO BID
Ezetimibe [Zetia] 10 mg PO DAILY
06/08/25 18:00
Atorvastatin [Lipitor] 80 mg PO QPM
Abnormal Lab Results
06/08/25
04:20
RBC 3.86 L 10^6/uL
(4.70-6.10)
Hgb 11.9 L g/dL
(13.0-18.0)
Hct 36.0 L %
(39.0-52.0)
MPV 11.1 H fL
(7.4-10.4)
Lymphocytes % 17.3 L %
(20.5-51.1)
Chloride 108 H mmol/L
(98-107)
BUN 23 H mg/dl
(9-20)
Glucose 115 H mg/dl
(70-99)
06/08/25 04:20
06/08/25 04:20
Vital Signs
Initial and Last Documented VS:
Initial Vital Signs
Temp Pulse Resp BP Pulse Ox
98.2 F 60 20 162/76 98
06/08/25 00:36 06/08/25 00:36 06/08/25 00:36 06/08/25 00:36 06/08/25 00:36
Last Documented Vital Signs
Temp Pulse Resp BP Pulse Ox
98.1 F 70 18 158/98 92
06/08/25 05:31 06/08/25 05:31 06/08/25 05:31 06/08/25 05:31 06/08/25 05:31
*Pulse Oximetry
SaO2: 98
Oxygen Mode of Delivery: Room air
Patient hypoxic: no
*EKG
Interpreted by ED Provider?: Yes
Comparison EKG: no changes
Heart Rate: 60
Rhythm: ventricular paced
Interval: normal interval
QRS Pattern: normal QRS
Ischemia: no ischemia
*Critical Care Note
Total Time (30-74mins, 75-104mins- exclusive of procedures): Not Applicable
ED Attending Note
-
Portions of this chart may have been created with voice recognition software.� Occasional wrong word or��sound alike� substitutions may have occurred due to the inherent limitations of voice recognition software.
Discharge Plan
Departure
Patient Disposition: Admit
Date of Disposition: 06/08/25
Time of Disposition: 04:11
Admit to: Med/Surg
Presentation/result/management discussed w/ accepting MD/DO: Hospitalist
Discharge Problem:
Pacemaker displacement
Interventions
Interventions:
*General Assessment Last Done: 06/08/25 04:06
*Neglect/Abuse Screening Last Done: 06/08/25 00:36
*ED- Fall Risk Assessment Last Done: 06/08/25 04:06
*Nursing Disposition Last Done: 06/08/25 05:19
ED-Skin Assessment Last Done: 06/08/25 04:06
Discharge Date and Time
Discharge Date/Time: 06/08/25 05:22
[2025-06-08] MEDS: MORPHINE SULFATE 4 MG IV (04:16)
[2025-06-08] MEDS: ZOFRAN 4 MG IV (04:16)
[2025-06-08 04:45] LABS: Hematocrit 36.0 % (39.0-52.0); Hemoglobin 11.9 g/dL (13.0-18.0); Mean Corp Hgb Conc. 33.1 g/dL (33.0-37.0); Mean Corpuscular Volume 93.3 fL (80.0-94.0); Nucleated Red Blood Cells % 0 % (-); Platelet Count 136 10^3/uL (130-400); Red Cell Dist. Width 13.7 % (11.5-14.5)
[2025-06-08 04:55] LABS: ALT (SGPT) 24 U/L (0-50); AST (SGOT) 30 U/L (17-59); Albumin 3.9 g/dl (3.5-5.0); Alkaline Phosphatase 94 U/L (38-126); Blood Urea Nitrogen 23 mg/dl (9-20); Calcium 9.2 mg/dl (8.4-10.2); Carbon Dioxide 30 mmol/L (22-30); Chloride 108 mmol/L (98-107); Glucose 115 mg/dl (70-99); Potassium 4.1 mmol/L (3.5-5.1); Sodium 140 mmol/L (135-145); Total Protein 6.3 g/dl (6.3-8.2); eGFR > 60.00
--- NOTE | 2025-06-08 05:02 | HPS.HSE ---
Family Physician
-
Family Physician: Giacomo Gan
Chief Complaint
-
PPM pocket swelling
History of Present Illness
79yo M with PMHx of Afib on Xarelto, HTN, CAD s/p PCI, moderate , recent admission for symptomatic pa s/p PPM 06/01/25 came with bulging of the PPM pocket. No pain or redness around area. Patient restarted Xarelto as recommended on 06/04/25. He
felt a pop on the day prior to admission in the area of PPM and then started to develop bulge. As per discussion between ED and cardiology - recommended admission under hospitalist service
Medical History
Past Medical History
Past Medical History: Reports Other
Additional Past Medical History:
see HPI
Past Surgical History: Reports Other
Additional Past Surgical History:
See HPI
Social History
Tobacco: Non-smoker
Alcohol: None
Drug: None
Family History
Family History: Not pertinent
Allergies / Home Medications
Allergies reflects when Allergies were last updated in [facility].
Home Medications with original date entered in [facility]
Allergy/Medication List:
Allergies
Allergy/AdvReac Type Severity Reaction Status Date / Time
No Known Allergies Allergy Verified 05/29/25 23:10
Home Medications
atorvastatin 80 mg tablet 80 mg PO QPM High Cholesterol 08/07/16
carvedilol 12.5 mg tablet 12.5 mg PO BID Blood Pressure 08/07/16
amlodipine 2.5 mg tablet 2.5 mg PO DAILY Blood Pressure 05/30/25
Held on 06/03/25. Instructions: Resume on 06/17/25. Ask your primary care provider and/or cuffing machine operator about when to resume this medication.
aspirin 81 mg tablet 81 mg PO DAILY Blood Clot Prevention/Tx 05/30/25
ezetimibe 10 mg tablet 10 mg PO DAILY High Cholesterol 05/30/25
rivaroxaban 20 mg tablet (Xarelto) 20 mg PO DAILY Blood Clot Prevention/Tx 05/30/25
Held on 06/03/25. Instructions: Resume on 06/04/25.
Review of Systems
-
History Source: Patient
A 12 point ROS was completed and negative except as noted: Yes
Physical Exam
Vital Signs
Vital Signs
Temp Pulse Resp BP Pulse Ox
98.2 F 66 16 158/74 96
06/08/25 00:36 06/08/25 04:15 06/08/25 04:15 06/08/25 04:14 06/08/25 04:15
Physical Exam
General: Well Developed, Well Nourished and No Apparent Distress
HEENT: NormoCephalic, Anicteric and Moist mucous membranes
Respiratory: Clear; No Wheezes or Crackles
Cardiac: S1/S2 and Regular Rhythm; No Murmur
GI: Soft, Non Tender and Non Distended
Genito-urinary: No costovertebral tender
Musculoskeletal: No Clubbing, No Cyanosis and No Edema
Skin: Warm; No Rash or Jaundice
Neuro: Awake, Alert, Oriented and AO x 3
Psych: Calm
Laboratory Results
-
06/08/25 04:20
06/08/25 04:20
Laboratory Results
Total Bilirubin 1.0 mg/dl (0.2-1.3) 06/08/25 04:20
AST 30 U/L (17-59) 06/08/25 04:20
ALT 24 U/L (0-50) 06/08/25 04:20
Alkaline Phosphatase 94 U/L (38-126) 06/08/25 04:20
Data Reviewed
-
Lab Data: Labs Reviewed by me
Impression/Plan
-
A/P:
#Concern for hemorrhage into PPM pocket
Cardio consult
Hold Xarelto
#
#CAD stable
#HLD
#Essential HTN
cont home meds
DVT ppx SCDs
Full code
I have spent at least 56min admitting patient
--- NOTE | 2025-06-08 07:27 | CON.CAR ---
Addendum entered and electronically signed by Louis Nielson MD 06/08/25 12:12:
I saw and examined the patient.
The JOINER or PA's note was reviewed and I agree with the note.
Comment: General: Well developed, well nourished in NAD.
Neck: Supple, no JVD, HJR, carotids +2 B/L, no bruits bilaterally.
Heart: Non displaced PMI, RRR, no murmurs, No S3, S4, no rubs.
Lungs: Clear to auscultation bilaterally, no wheeze, rhonchi, rubs bilaterally,
normal expiratory phase.
Left pacer site with swelling and possible hematoma
Extremities: No clubbing, cyanosis or edema bilaterally.
Neuro: Grossly nonfocal, awake, alert and oriented x3.
Bhavesh has a history of pacer implant on 06/01/2025 for syncope, PAF on chronic Xarelto, hypertension, CAD, moderate aortic stenosis. He presents after experiencing left anterior chest wall pain and swelling near pacer site. Cardiology is consulted
to assess pacer site.
Appears to have a small hematoma. Will discuss with electrophysiology. This might be able to be managed as an outpatient. Will hold Xarelto for now and await EP input.
Original Note:
Consultation
Consultation Request
Date/Time Consultation Requested: 06/08/2025 at 0500
Date/Time Consultation Performed: 06/08/2025 at 1040
Requesting Provider: Dr. Aponte
Performing Provider: Dr. Nielson
Reason for Consultation: Pacemaker pocket hematoma
Medical History
-
History of Present Illness:
Patient came to [facility] ER late last night with sudden onset left anterior chest wall pain and swelling and was admitted with possible pocket hematoma and cardiology is now being consulted. Patient was admitted from 05/29/2025 until 06/03/2025 for near
syncope. During that admission patient had Medtronic DC PPM placed on 06-24. Then at 9 PM on the night of 06-24 telemetry suggested loss of AV synchrony and the following day on device interrogation there is evidence of RA lead dislodgment. It is
suspected that patient dislodged his lead the same day was implanted and patient was taken back to the EP lab on 06/02/2025 for RA lead revision. Patient was discharged to home on 06/03/2025. Patient feels that the left anterior chest wall swelling
started abruptly last night and he describes pain radiating into his axilla and to his left back. Patient denies any fevers. No evidence of fever on my review of VS. No evidence of leukocytosis. Left ACW dressing removed and underlying there
appears to be hematoma without malodor or drainage. No fluid was expressed from the pocket with mild palpation. Patient reports improved pain following morphine 4 mg IV x 1 that was given at about 4 AM today.
PMH:
Recent admission for near syncope and PPM 05/29/25 until 06/03/25
s/p Medtronic DC PPM 06/01/25
s/p RA lead revision for lead dislodgement night of PPM placement
Paroxysmal Afib
Chronic Xarelto OAC
HTN
CAD s/p overlapping 3 mm and 3 mm Cypher to LAD 2004
Moderate
Past Medical History
Past Medical History: Other (in HPI)
Past Surgical History: Cardiac (s/p 3 mm and 3 mm overlapping Cypher stents to LAD 2004, s/p Medtronic DC PPM 06/01/25, s/p RA lead revision 06/02/25) and Orthopedic
Social History
Tobacco: Non-Smoker
Alcohol: None
Drug: None
Personal:
Living: With Family (daughter)
Family History
Family History: CAD
Allergies / Home Medications
Allergy/AdvReac Type Severity Reaction Status Date / Time
No Known Allergies Allergy Verified 05/29/25 23:10
�Medication �Instructions �Recorded �Confirmed �Type
atorvastatin 80 mg tablet 80 mg PO QPM High Cholesterol 08/07/16 05/30/25 History
carvedilol 12.5 mg tablet 12.5 mg PO BID Blood Pressure 08/07/16 05/30/25 History
amlodipine 2.5 mg tablet 2.5 mg PO DAILY Blood Pressure 05/30/25 05/30/25 History
Held on 06/03/25.
Instructions: Resume on
06/17/25. Ask your primary
care provider and/or
toy department manager about when to
resume this medication.
aspirin 81 mg tablet 81 mg PO DAILY Blood Clot 05/30/25 05/30/25 History
Prevention/Tx
ezetimibe 10 mg tablet 10 mg PO DAILY High Cholesterol 05/30/25 05/30/25 History
rivaroxaban 20 mg tablet (Xarelto) 20 mg PO DAILY Blood Clot 05/30/25 05/30/25 History
Held on 06/03/25. Prevention/Tx
Instructions: Resume on
06/04/25.
Review of Systems
-
History Source: Patient
All other systems: Negative unless noted
Physical Exam
Vital Signs
Temp Pulse Resp BP Pulse Ox
98.1 F 70 18 158/98 92
06/08/25 05:31 06/08/25 05:31 06/08/25 05:31 06/08/25 05:31 06/08/25 05:31
GEN: NAD. AAOx3
HEENT: EOMI, MMM
LUNGS: RA. Clear anterolaterally without wheeze
CV: AV paced on tele. Left ACW Aquacel dressing removed to reveal underlying hematoma without ecchymosis, no drainage, no malodor. 2 syst LSB
ABD: soft, BS+, NT, ND
EXT: No clubbing, cyanosis, lesions or edema B/L
NEURO: Gross non-focal
SKIN: No rash
Lab Results
06/08/25 04:20
06/08/25 04:20
Impression / Plan
-
PCP: Dr. Giacomo Gan
Card: Dr. Brandy Pickard
Impression:
Admitted with left ACW pocket hematoma and pain 06/08/25
Recent admission for near syncope and PPM 05/29/25 until 06/03/25
s/p Medtronic DC PPM 06/01/25
s/p RA lead revision for lead dislodgement night of PPM placement
Paroxysmal Afib
Chronic Xarelto OAC
HTN
CAD s/p overlapping 3 mm and 3 mm Cypher to LAD 2004
Moderate
Echo 05/02/2025: EF 60%, no WMA, mild MR, moderate peak/mean 45/23 mmHg and JAKE 1.2 cm sq, trace TR
Echo 06/02/2025: EF 55 to 60%, normal RV size and function, mild MR, mild peak/mean 33/17 mmHg, mild TR, trivial pericardial effusion
Plan:
-Patient came to [facility] ER late last night with sudden onset left anterior chest wall pain and swelling and was admitted with possible pocket hematoma and cardiology is now being consulted. Patient was admitted from 05/29/2025 until 06/03/2025 for near
syncope. During that admission patient had Medtronic DC PPM placed on 06-24. Then at 9 PM on the night of 06-24 telemetry suggested loss of AV synchrony and the following day on device interrogation there is evidence of RA lead dislodgment. It is
suspected that patient dislodged his lead the same day was implanted and patient was taken back to the EP lab on 06/02/2025 for RA lead revision. Patient was discharged to home on 06/03/2025. Patient feels that the left anterior chest wall swelling
started abruptly last night and he describes pain radiating into his axilla and to his left back. Patient denies any fevers. No evidence of fever on my review of VS. No evidence of leukocytosis. Left ACW dressing removed and underlying there
appears to be hematoma without malodor or drainage. No fluid was expressed from the pocket with mild palpation. Patient reports improved pain following morphine 4 mg IV x 1 that was given at about 4 AM today.
-ECG reviewed by me is AV paced
-Device interrogation from the ER last night reviewed by me with stable lead parameters.
-CXR, ECG and device interrogation are all reassuring for normal device and lead function.
-Suspect pain is from a pocket hematoma. Xarelto was resumed on 06/04/2025. We will hold Xarelto starting now and arrange for recheck in the office.
-Pain improved following single dose of morphine 4 mg IV x1 in the ER at 0400.
-Patient with known paroxysmal Afib, but has been in SR last admission and now. No h/o thromboembolic event.
-BP stable and outpatient dose of Coreg 12.5 mg BID has been continued
-Outpatient dose of amlodipine 2.5 mg daily had been on hold at the end of his last admission due to hypotension. BP this admission has been normotensive to hypertensive and so amlodipine restarted. Follow BP.
[2025-06-08] MEDS: ASPIR LOW (ENTERIC COATED) 81 MG PO (09:15)
[2025-06-08] MEDS: NORVASC 2.5 MG PO (09:15)
[2025-06-08] MEDS: COREG 12.5 MG PO (09:15)
[2025-06-08] MEDS: ZETIA 10 MG PO (09:15)
--- NOTE | 2025-06-08 15:07 | W.PN.UPDATE ---
Update Note
Progress Note Update
Back into see patient and redressed his PPM site with a fresh Aquacel. Talked with patient's daughter in the room and we looked at wound together. We reviewed that this is likely a pocket hematoma. We talked about expectant management. We made a
plan to try Tylenol #3 1 tab now and see how the patient feels, no known allergies and he tolerated morphine early this morning. Patient is asking to stay until tomorrow, TT communication with hospitalist attending. Patient's daughter is in
agreement with plan.
--- NOTE | 2025-06-08 15:24 | W.PN.HOSP.TC ---
Today's Communication/Plan
-
Monitor left anterior chest wall hematoma.
Repeat CBC in a.m.
Off of Xarelto
Assessment / Plan
Assessment / Plan
Impression:
Left anterior chest wall pocket hematoma secondary to anticoagulation. 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
Paroxysmal atrial fibrillation
Anticoagulation with Xarelto
Essential hypertension
CAD status post stenting
Moderate aortic stenosis
Plan:
Left anterior chest wall hematoma stable with no evidence of purulence and clean suture line.
Hemoglobin stable at 11.9.
Imaging reviewed with the left chest wall pacemaker with lead tips over the right atrium and the right ventricle
Xarelto discontinued with plan to hold for another few days with outpatient cardiology/EP follow-up.
Patient preferred to stay overnight to assure appropriate pain control and stability of hematoma. Initiated on Tylenol 3.
Cardiovascular status compensated upon admission
Continue preadmission regimen including Coreg, Norvasc, aspirin, Zetia, Lipitor.
Anticipated Discharge: Within 24 hours
Subjective/Interval History
-
Date of Service: June 08, 2025
Objective Data
-
Labs:
Laboratory Results
06/08/25
04:20
WBC 7.5
Hgb 11.9 L
Hct 36.0 L
Plt Count 136 D
Sodium 140
Potassium 4.1
Chloride 108 H
Carbon Dioxide 30
BUN 23 H
Creatinine 0.9
Glucose 115 H
Calcium 9.2
Total Bilirubin 1.0
AST 30
ALT 24
Alkaline Phosphatase 94
Vital Signs:
Vital Signs
Temp Pulse Resp BP Pulse Ox
98.0 F 62 16 135/72 94
06/08/25 07:35 06/08/25 09:15 06/08/25 07:35 06/08/25 09:15 06/08/25 11:12
Physical Exam
-
General: Well Developed and No Apparent Distress
HEENT: Normocephalic, Atraumatic and Moist Mucous Membranes
Respiratory: Clear to Auscultation
Cardiac: Regular Rhythm, S1/S2 and Other (Left PPM site pocket hematoma with mild tenderness. Intact suture line with no purulence); Negative Murmur, Rub or Gallop
GI: Soft, Nontender, Nondistended and Normal Bowel Sounds; Negative Organomegaly
Rectal: Deferred by Provider
Musculoskeletal: No Clubbing, No Cyanosis and No Edema
Skin: Negative Rash
Neuro: Nonfocal/Grossly Intact
[2025-06-08] MEDS: TYLENOL #3 1 TABLET PO (15:29)
[2025-06-08] MEDS: LIPITOR 80 MG PO (17:30)
[2025-06-08] MEDS: COREG PO (20:56)
[2025-06-09 06:50] LABS: Hematocrit 33.7 % (39.0-52.0); Hemoglobin 11.1 g/dL (13.0-18.0); Mean Corp Hgb Conc. 32.9 g/dL (33.0-37.0); Mean Corpuscular Volume 94.1 fL (80.0-94.0); Nucleated Red Blood Cells % 0 % (-); Platelet Count 131 10^3/uL (130-400); Red Cell Dist. Width 14.0 % (11.5-14.5)
[2025-06-09 07:52] VITALS: BP 115/59
--- NOTE | 2025-06-09 08:32 | VNURNOTE ---
Chart reviewed. Patient is current with VN. Will continue to follow hospital course and DC plans.
[2025-06-09] MEDS: NORVASC 2.5 MG PO (08:42)
[2025-06-09] MEDS: COREG 12.5 MG PO (08:43)
[2025-06-09] MEDS: ZETIA 10 MG PO (08:43)
[2025-06-09] MEDS: ASPIR LOW (ENTERIC COATED) 81 MG PO (08:43)
--- NOTE | 2025-06-09 10:52 | W.PN.HOSP.TC ---
Today's Communication/Plan
-
dc home
op EP f/u
hold xarelto
Assessment / Plan
Assessment / Plan
Impression:
Left anterior chest wall pocket hematoma secondary to anticoagulation. 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
Paroxysmal atrial fibrillation
Anticoagulation with Xarelto
Essential hypertension
CAD status post stenting
Moderate aortic stenosis
Plan:
Left anterior chest wall hematoma stable with no evidence of purulence and clean suture line.
Hemoglobin stable.
Imaging reviewed with the left chest wall pacemaker with lead tips over the right atrium and the right ventricle
Xarelto discontinued with plan to hold for another few days with outpatient cardiology/EP follow-up.
Cardiovascular status compensated upon admission
Continue preadmission regimen including Coreg, Norvasc, aspirin, Zetia, Lipitor.
Discussed with cardiology. Continue to hold Xarelto on discharge. Patient to hold Xarelto until seen by rn ed in the office.
More than 30 minutes spent in discharge including
Final examination of the patient
Summarizing hospital stay
Instructions for continuing care to all relevant caregivers
Preparation of discharge records, prescriptions, and referral forms
Total time spent (in minutes): 50
Anticipated Discharge: Today
Subjective/Interval History
-
Date of Service: June 09, 2025
Feeling better
Denies much pain at the pacemaker site
Objective Data
-
Labs:
Laboratory Results
06/09/25
06:13
WBC 5.9
Hgb 11.1 L
Hct 33.7 L
Plt Count 131
Vital Signs:
Vital Signs
Temp Pulse Resp BP Pulse Ox
97.7 F 61 14 115/59 94
06/09/25 07:52 06/09/25 08:42 06/09/25 07:52 06/09/25 08:42 06/09/25 07:52
I&O
06/08/25 06/09/25 06/10/25
06:59 06:59 06:59
Intake Total 720 / 720
Balance 720 / 720
Physical Exam
-
General: Well Developed and No Apparent Distress
HEENT: Normocephalic, Atraumatic and Moist Mucous Membranes
Respiratory: Clear to Auscultation
Cardiac: Regular Rhythm, S1/S2 and Other (Left PPM site pocket hematoma. Aquacel dressing noted); Negative Murmur, Rub or Gallop
GI: Soft, Nontender, Nondistended and Normal Bowel Sounds; Negative Organomegaly
Rectal: Deferred by Provider
Musculoskeletal: No Clubbing, No Cyanosis and No Edema
Skin: Negative Rash
Neuro: Awake and Nonfocal/Grossly Intact
Psych: Calm
--- NOTE | 2025-06-09 10:54 | W.DCSUMMARY ---
Discharge Summary
Discharge Data
Date of Admission: 06/08/25
Date of Discharge: 06/09/25
-
Pending Results: No
Hospital Course
79 y/o male with past medical history of Paroxysmal Atrial Fibrillation (on anticoagulation with Xarelto), hypertension, CAD s/p overlapping 3 mm and 3 mm Cypher to LAD 2004 and moderate aortic stenosis p/w bulging of the PPM pocket. Patient was
found to have a pocket hematoma secondary to anticoagulation. Patient was signs were stable. Hemoglobin was stable. Patient was eval by cardiology. Pain was controlled. Vital signs were stable. Imaging reviewed with the left chest wall
pacemaker with lead tips over the right atrium and the right ventricle Cardiology recommended patient to be discharged however Xarelto needs to be held until patient is evaluated in the [facility] office.
Discharge Plan
-
Patient Disposition: Home with Home Care
Discharge Diagnosis/Procedures: Left anterior chest wall pocket hematoma secondary to anticoagulation. 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
Condition: Fair
Diet: Low Cholesterol
Activity: As tolerated
Driving Restrictions: Not until seen by your Dr
Activity Restrictions/Additional Instructions:
Hold Xarelto until seen by cardiology in the office
Referrals:
Giacomo Gan MD [Family Provider, Family Practice]
Brandy Pickard MD [Active, Cardiology] - 06/13/25 9:00 am
Referral Note: He has an appointment for an incision check at the [facility] on 06/13/2025 at 9 AM.
Additional Discharge Medication Instructions: -STOP taking Xarelto
Prescriptions:
Continued
atorvastatin 80 MG tablet
80 mg PO QPM
carvedilol 12.5 MG tablet
12.5 mg PO BID
amlodipine 2.5 mg Tablet
2.5 mg PO DAILY
aspirin 81 mg Tablet
81 mg PO DAILY
ezetimibe 10 mg Tablet
10 mg PO DAILY
Held
Xarelto 20 mg Tablet
20 mg PO DAILY
Hold Instructions: Resume on 06/17/25. Hold until seen by cardiology in the office
Discharge Orders:
Discharge Patient (As Directed); Ordered 06/09/25
Ordered By: Aashish Quintanilla
Discharge Date and Time
Print Language: ARMENIAN
--- NOTE | 2025-06-09 12:08 | W.PN.CARDCBS ---
Addendum entered and electronically signed by Giacomo Pickard MD 06/09/25 14:00:
Patient seen, interviewed and examined by me.
Well-appearing, no acute distress
Regular rate and rhythm with normal S1 and S2, no S3 no S4. There is a grade 1/6 apical holosystolic murmur and no rubs. PMI is normally placed.
Lungs are clear to auscultation bilaterally without wheezes rales or rhonchi.
Abdomen soft nontender nondistended with normoactive bowel sounds
Extremities show trace pretibial edema bilaterally no clubbing or cyanosis.
Neurologic exam is grossly nonfocal.
Wound at left upper chest with Aquacel dressing that is clean and dry. There is no apparent hematoma.
I reviewed his chest x-ray from yesterday which shows the normal expected appearance of his leads. No pneumothorax.
He has been afebrile and without leukocytosis.
His discomfort has improved/resolved.
Will hold Xarelto until he is reevaluated in the office on June 13, 2025 and if at that wound check there is no significant hematoma, Xarelto should be resumed at his typical dose of 20 mg daily
Activity restrictions also reviewed with him.
All of his questions answered.
He is stable for discharge to home today.
Original Note:
Today's Communication / Plan
-
D/C to home with plan for Tylenol and Tylenol #3 for pain management
Xarelto on hold until re-evaluated in the office on 06/13/25
Impression / Plan
-
PCP: Dr. Giacomo Gan
Card: Dr. Brandy Pickard
Impression:
Admitted with left ACW pocket hematoma and pain 06/08/25
Recent admission for near syncope and PPM 05/29/25 until 06/03/25
s/p Medtronic DC PPM 06/01/25
s/p RA lead revision for lead dislodgement night of PPM placement
Paroxysmal Afib
Chronic Xarelto OAC
HTN
CAD s/p overlapping 3 mm and 3 mm Cypher to LAD 2004
Moderate
Echo 05/02/2025: EF 60%, no WMA, mild MR, moderate peak/mean 45/23 mmHg and JAKE 1.2 cm sq, trace TR
Echo 06/02/2025: EF 55 to 60%, normal RV size and function, mild MR, mild peak/mean 33/17 mmHg, mild TR, trivial pericardial effusion
Plan:
-Left ACW implant site stable overnight. Pain better after morphine in ER 06/08/24 early AM and then Tylenol #3 later in the day. Rx printed by me for patient to take to his pharmacy.
-Device interrogation from the ER 06/08/25 reviewed by me with stable lead parameters.
-CXR, ECG and device interrogation are all reassuring for normal device and lead function.
-Xarelto had been resumed on 06/04/2025, but now plan to hold Xarelto until recheck in the office on 06/13/25.
-Patient with known paroxysmal Afib, but has been in SR last admission and now. No h/o thromboembolic event.
-BP stable and outpatient dose of Coreg 12.5 mg BID has been continued
-Outpatient dose of amlodipine 2.5 mg daily had been on hold at the end of his last admission due to hypotension. BP this admission has been normotensive to hypertensive and so amlodipine restarted.
-Patient is stable for d/c to home from a cardiac standpoint 06/09/25
HPI: Patient came to [facility] ER late last night with sudden onset left anterior chest wall pain and swelling and was admitted with possible pocket hematoma and cardiology is now being consulted. Patient was admitted from 05/29/2025 until 06/03/2025 for
near syncope. During that admission patient had Medtronic DC PPM placed on 06-24. Then at 9 PM on the night of 06-24 telemetry suggested loss of AV synchrony and the following day on device interrogation there is evidence of RA lead dislodgment. It
is suspected that patient dislodged his lead the same day was implanted and patient was taken back to the EP lab on 06/02/2025 for RA lead revision. Patient was discharged to home on 06/03/2025. Patient feels that the left anterior chest wall swelling
started abruptly last night and he describes pain radiating into his axilla and to his left back. Patient denies any fevers. No evidence of fever on my review of VS. No evidence of leukocytosis. Left ACW dressing removed and underlying there
appears to be hematoma without malodor or drainage. No fluid was expressed from the pocket with mild palpation. Patient reports improved pain following morphine 4 mg IV x 1 that was given at about 4 AM today.
Progress Note - Underwriter
Subjective
Date of Service: June 09, 2025
He feels well, pain is better and didn't get worse in the night like it had the night of admission so he is reassured
Objective
Labs:
06/09/25 06:13
06/08/25 04:20
Labs
Hgb 11.1 g/dL (13.0-18.0) L 06/09/25 06:13
Hct 33.7 % (39.0-52.0) L 06/09/25 06:13
Plt Count 131 10^3/uL (130-400) 06/09/25 06:13
Sodium 140 mmol/L (135-145) 06/08/25 04:20
Potassium 4.1 mmol/L (3.5-5.1) 06/08/25 04:20
BUN 23 mg/dl (9-20) H 06/08/25 04:20
Creatinine 0.9 mg/dL (0.7-1.3) 06/08/25 04:20
Glucose 115 mg/dl (70-99) H 06/08/25 04:20
Vital Signs and I&O:
Vital Signs
Temp Pulse Resp BP Pulse Ox
97.7 F 61 14 115/59 94
06/09/25 07:52 06/09/25 08:42 06/09/25 07:52 06/09/25 08:42 06/09/25 08:50
Vital Signs
Temp Pulse Resp BP Pulse Ox
97.7 F 61 14 115/59 94
06/09/25 07:52 06/09/25 08:42 06/09/25 07:52 06/09/25 08:42 06/09/25 08:50
Intake & Output
06/07/25 06/08/25 06/09/25 06/10/25
06:59 06:59 06:59 06:59
Intake Total 720 / 720
Balance 720 / 720
Physical Exam
Physical Exam
GEN: NAD. AAOx3
LUNGS: RA.
CV: AV paced on tele. Left ACW Aquacel in place with underlying hematoma
[2025-06-09 15:09] VITALS: BP 97/57
--- NOTE | 2025-06-09 15:35 | PTCARENOTE ---
Pt dc paperwork reviewed with pt and daughter. copy provided. IV removed. All belongings from room with pt. Pt escorted to daughters car by staff via w/c
--- NOTE | 2025-06-09 17:04 | CM ---
Alert awake oriented patient who lives with his dgt Lenora in a 2 story home with 3 step to enter and 13 steps to bed and bathroom. He is assisted in all activities of daily living.He was offered VN he requested resumption [facility] . [facility] reviewed
signed on chart. Dgt will drive him home.He uses a walker.
Pt [facility] hx / [facility] history
Pharmacy [facility]
PCP DR Giacomo Gan
PLAN Home with [facility]
== END 2025-06-09 15:37 | disposition home health service (06) ==
LOC: 4 EAST ACU 05:27
PROVIDERS: Internal Medicine; ADMITTING PHYSICIAN Internal Medicine; ATTENDING PHYSICIAN Hospitalist; EMERGENCY PHYSICIAN Student in an Organized Health Care Education/Training Program; FAMILY PHYSICIAN Family Medicine; OTHER PHYSICIAN Internal Medicine Cardiovascular Disease
DX: L76.32 Postprocedural hematoma of skin and subcutaneous tissue following other procedure (principal); Y83.1 Surgical operation with implant of artificial internal device as the cause of abnormal reaction of the patient, or of later complication, without mention of misadventure at the time of the procedure; D68.32 Hemorrhagic disorder due to extrinsic circulating anticoagulants; T45.515A Adverse effect of anticoagulants, initial encounter; I48.0 Paroxysmal atrial fibrillation; I10 Essential (primary) hypertension; I25.10 Atherosclerotic heart disease of native coronary artery without angina pectoris; I35.0 Nonrheumatic aortic (valve) stenosis; E78.5 Hyperlipidemia, unspecified; Z79.01 Long term (current) use of anticoagulants; Z79.82 Long term (current) use of aspirin; Z79.899 Other long term (current) drug therapy; Z95.0 Presence of cardiac pacemaker; Z95.5 Presence of coronary angioplasty implant and graft
CPT/HCPCS: 71046; 80053; 85025; 93005; 96374; 96375; 99285; G0378

== ENCOUNTER → 2025-08-05 13:06 | Outpatient (REF) | payer BC, SELFPAY ==
[2025-08-05 15:21] LABS: Hematocrit 32.8 % (39.0-52.0); Hemoglobin 10.9 g/dL (13.0-18.0); Mean Corp Hgb Conc. 33.2 g/dL (33.0-37.0); Mean Corpuscular Volume 95.1 fL (80.0-94.0); Nucleated Red Blood Cells % 0 % (-); Platelet Count 118 10^3/uL (130-400); Red Cell Dist. Width 14.1 % (11.5-14.5); Reticulocyte Count 1.7 % (0.4-2.8)
[2025-08-05 15:28] LABS: ALT (SGPT) 17 U/L (0-50); AST (SGOT) 26 U/L (17-59); Albumin 3.8 g/dl (3.5-5.0); Alkaline Phosphatase 86 U/L (38-126); Blood Urea Nitrogen 27 mg/dl (9-20); Calcium 9.2 mg/dl (8.4-10.2); Carbon Dioxide 28 mmol/L (22-30); Chloride 110 mmol/L (98-107); Glucose 99 mg/dl (70-99); Iron 84 ug/dl (49-181); Potassium 4.4 mmol/L (3.5-5.1); Sodium 141 mmol/L (135-145); Total Protein 6.2 g/dl (6.3-8.2); eGFR > 60.00
[2025-08-05 15:37] LABS: Total Iron Binding Capacity 336 ug/dl (261-462)
[2025-08-05 16:06] LABS: Ferritin 20.9 ng/ml (17.9-464.0)
[2025-08-05 16:37] LABS: Folate 17.4 ng/ml (2.76-20); Vitamin B12 326 pg/ml (239-931)
== END ==
LOC: HWLAB 13:06
PROVIDERS: ATTENDING PHYSICIAN Internal Medicine Hematology & Oncology; FAMILY PHYSICIAN Family Medicine; REFERRING PHYSICIAN Urology
DX: D64.9 Anemia, unspecified (principal); D69.6 Thrombocytopenia, unspecified; C61 Malignant neoplasm of prostate
CPT/HCPCS: 36415; 80053; 82607; 82668; 82728; 82746; 82784; 83010; 83521; 83540; 83550; 84155; 84165; 84403; 85025; 85045; 86334

== ENCOUNTER → 2025-10-04 12:57 | Outpatient (REF) | payer BC, SELFPAY ==
[2025-10-04 16:11] LABS: Hematocrit 39.6 % (39.0-52.0); Hemoglobin 13.1 g/dL (13.0-18.0); Mean Corp Hgb Conc. 33.1 g/dL (33.0-37.0); Mean Corpuscular Volume 97.8 fL (80.0-94.0); Nucleated Red Blood Cells % 0 % (-); Platelet Count 141 10^3/uL (130-400); Red Cell Dist. Width 14.2 % (11.5-14.5)
[2025-10-04 16:17] LABS: Iron 100 ug/dl (49-181)
[2025-10-04 16:26] LABS: Total Iron Binding Capacity 277 ug/dl (261-462)
[2025-10-04 16:53] LABS: Ferritin 267.0 ng/ml (17.9-464.0)
== END ==
LOC: HWLAB 12:57
PROVIDERS: ATTENDING PHYSICIAN Internal Medicine Hematology & Oncology; FAMILY PHYSICIAN Family Medicine
DX: D64.9 Anemia, unspecified (principal); D69.6 Thrombocytopenia, unspecified; D50.9 Iron deficiency anemia, unspecified
CPT/HCPCS: 36415; 82728; 83540; 83550; 85025

== ENCOUNTER → 2025-11-10 14:23 | Outpatient (REF) | payer BC, SELFPAY ==
[2025-11-10 16:08] LABS: PSA, Total - Diagnostic 3.07 ng/ml (0.0-4.0)
== END ==
LOC: REG 14:23
PROVIDERS: ATTENDING PHYSICIAN Urology; FAMILY PHYSICIAN Family Medicine
DX: C61 Malignant neoplasm of prostate (principal)
CPT/HCPCS: 36415; 84153

== ENCOUNTER → 2025-11-30 09:44 | Outpatient (REF) | payer BC, SELFPAY | LOC: WDC 09:44 | PROVIDERS: ATTENDING PHYSICIAN Family Medicine | DX: N63.42 Unspecified lump in left breast, subareolar (principal) | CPT/HCPCS: 76642; 77062; 77066 ==